=== PATIENT | male | born 1950 | race Caucasian/White ===

== ENCOUNTER 2023-10-03 14:26 | Outpatient (AMB) | payer OTHER, SELFPAY ==
--- NOTE | 2023-10-03 14:27 | MHC.OFFVIS ---
Vital Signs 10/03/23 14:28 Height 5 ft 10 in Weight 224 lb BMI 32.1 BP 112/72 Blood Pressure Location Rt brachial Position Sitting Pulse Source Pulse Oximeter Pulse Oximetry (%) 97 Oxygen Delivery Method Room Air Intake Visit Reasons: 05/07LVM+Let TRL-Gzhnypmif-GGTN Intake Note: patient presents for dizziness. Allergies No Known Allergies Allergy (Verified 10/03/23 14:31) Medication List - Last Reconciled 10/03/23 by REBEKAH Farr amlodipine 10 mg PO DAILY ferrous sulfate 325 mg PO DAILY lisinopril 20 mg PO DAILY meclizine 12.5 mg PO TID metformin 1,000 mg PO BID omeprazole 40 mg PO BID simvastatin 40 mg PO BEDTIME HPI Comments Details: 73-yr-old male presents for neurological evaluation of: dizziness in setting of PMH of DM, HTN, HLD, GERD. Pt reports he had intermittent episodes of room spinning dizziness, which started > 1 yr ago. He describes brief episodes of room spinning dizziness triggered by leaning his back or rolling over in bed. During this time, he had 2 more intense episodes. Once, it occurred after he stood up from his couch. Another time, he was golfing, and he leaned over to put the golf ball on the coco, and had room spinning dizziness. He feels this was triggered by smoking flavored small cigars. He states he smoking any cigars about 3 months ago, and has not had dizziness since. Endorses left ear surgery to tx left ear infection ~ 50 yrs ago, [place], left more so than right, hearing loss, nasal polyp removal 20 yrs ago, occasional very brief orthostatic lightheadedness- he notes he does not drink a lot of fluids- does take 1 glasses of wine and espresso w/ judy/water (w/ lunch and dinner). His dtr adds that pt has had 2 falls- one fall many 55yrs ago while working in [facility]- He had another fall ~15 yrs ago, where he fell and hit the back of his head, where he had headaches and dizziness, but pt denies that he has ever had headaches. His notes that he did have headaches and dizziness for a few days after that fall. Denies tinnitus, ear pain, recent ear infections, headaches, head pressure, neck pain, jaw pain, bruxism, sleep difficulties. He has not had any recent head imaging. He has not done vestibular therapy. PFSH Surgical History (Updated 10/03/23 @ 14:40 by SAMY Gaitan) History of ear surgery Family History (Updated 10/03/23 @ 14:40 by SAMY Gaitan) Father Cancer Social History (Updated 10/03/23 @ 14:41 by SAMY Gaitan) Alcohol intake: current Patient Tobacco Use Status: Former Tobacco user Tobacco use type: Cigar Review of Systems Const All systems reviewed & are unremarkable except as noted in HPI and below Physical Exam Vital Signs: Last Vital Signs BP 112/72 10/03/23 14:28 Pulse Ox 97 10/03/23 14:28 Oxygen Delivery Method Room Air 10/03/23 14:28 BMI result Body Mass Index 32.1 Const General: cooperative and no acute distress Orientation/consciousness: patient oriented x3 HEENT Other: Signs of loer front teeth wearing Head: Yes normocephalic Resp Effort & Inspection: normal respiratory effort and able to speak in complete sentences Neuro Other: Limited cervical ROM in all fiends w/o pain. General: patient oriented x3, CN's II-XI intact bilaterally (w/ exception of bilateral [place]) and deep tendon reflexes 2+ bilaterally Cranial nerves: Yes Bilaterally intact EOM present and Yes Nystagmus not present Gait exam (Neuro): Normal gait present Motor exam (neuro): 5/5 motor strength present throughout Psych Appearance: grossly normal Mental Status: mental status grossly normal Speech and movement: Normal speech and movement present Affect: normal affect Attitude: cooperative Thought process: Normal thought process present Thought content: Normal thought content present Insight: Good insight present (Psych) Assessment & Plan Assessment & Plan (1) Dizziness: Code(s): R42 - Dizziness and giddiness Category: Medical (2) Hard of hearing: Code(s): H91.90 - Unspecified hearing loss, unspecified ear Category: Medical Plan Pt advsied to undergo: Brain MRI w/wo to assess for intracranial etiologies of dizziness in setting of CV risk factors and h/o left ear surgery/infection. Head/neck CTA to rule out extra/intra cranial artery stenosis. Increase fluids. Concur w/ cigar smoking cessation. Future considerations- vestibular tx. Patient seen in collaboration with Dr. Athreya. Orders: Orders CT angio head neck 10/03/23 E11.9 - Type 2 diabetes mellitus without complications, E78.5 - Hyperlipidemia, unspecified, I10 - Essential (primary) hypertension, R42 - Dizziness and giddiness MR head/brain wo/w con 10/03/23 E11.9 - Type 2 diabetes mellitus without complications, E78.5 - Hyperlipidemia, unspecified, I10 - Essential (primary) hypertension, R42 - Dizziness and giddiness Coding Level of Care Code New Pt Level 4 (49758) Diagnoses Dizziness R42 Hard of hearing H91.90
[2023-10-03 14:28] VITALS: BP 112/72; O2SAT 97; BMI 32.1
== END 2023-10-03 16:17 | disposition home or self-care (01) ==
PROVIDERS: PCP Student in an Organized Health Care Education/Training Program; Visit Provider Nurse Practitioner Family
DX: R42 Dizziness and giddiness (principal); H91.90 Unspecified hearing loss, unspecified ear
CPT/HCPCS: 99204

== ENCOUNTER → 2023-10-03 14:26 | Outpatient (BNVA) | payer OTHER, SELFPAY | PROVIDERS: PCP Student in an Organized Health Care Education/Training Program; Visit Provider Nurse Practitioner Family ==

== ENCOUNTER → 2023-12-16 13:18 | Outpatient (BNV) | payer OTHER, SELFPAY | PROVIDERS: PCP Student in an Organized Health Care Education/Training Program; Visit Provider Radiology Diagnostic Radiology | DX: R42 Dizziness and giddiness (principal) | CPT/HCPCS: 70553 ==

== ENCOUNTER 2023-12-16 13:34 | Outpatient (REF) | payer OTHER, SELFPAY ==
--- NOTE | ~2023-12-16 | MR_ITS ---
EXAMINATION: MR BRAIN AND MRI ORBITS WITHOUT AND WITH CONTRAST CLINICAL INFORMATION: Dizziness. Prior left ear surgery. COMPARISON: None available. TECHNIQUE: Multiplanar, multisequence MRI of the brain and MRI orbits was obtained before and after the intravenous administration of 10 mL gadolinium without reported immediate complications. FINDINGS: No restricted diffusion. Macrocystic encephalomalacia with associated hyperintense T2 FLAIR and susceptibility centered within the right frontal lobe, rectus and orbital frontal gyri, similar findings to a lesser extent involving the left frontal rectus and orbital frontal gyri. Bilateral multifocal patchy deep periventricular white matter hyperintense T2 FLAIR signal involving centrum semiovale, reyes radiata, mid cathy and to a lesser extent brachii pontis bilaterally. No acute intracranial hemorrhage, mass effect, midline shift, hydrocephalus or herniation. Hutchison-white matter differentiation is normal. Posterior cranial fossa contents demonstrated small old lacunar infarcts in the cerebellum. Old lacunar infarcts in the basal ganglia with the cribriform shape pattern and extending into the reyes radiata white matter. Prominence of the extra-axial CSF spaces, cerebral sulci and ventricles. Flow-void signal within the main cerebral vessels is normal. Left Meckel caves CSF prominence. Sellar/suprasellar region is normal. Craniocervical junction is intact. There is a 12 mm intrinsic hyperintense T1, nonrestricted and likely nonenhancing ovoid shaped signal abnormality within the left ethmoid air cells/left nasal cavity, similar lesions in the posterior right ethmoid air cells/nasal cavity and right sphenoid sinus. No abnormal enhancement within the intra-axial and extra-axial compartment of the cranium. Polypoid mucosal enhancing thickening of the paranasal sinuses. No enhancing lesion within the intraconal or the extraconal compartment of the orbits. There is an 8 mm sessile isointense T1 intermediate T2 FLAIR heterogeneous enhancing lesion within the skin of the left lateral nose bridge. No extension within the dermis or the medial preseptal orbit. The eyes are intact. The lacrimal glands are normal. MR/MR head/brain wo/w con IMPRESSION: 8 mm lesion, left lateral nose bridge skin. Polypoid pattern paranasal sinus disease without seated complex/proteinaceous retention cysts. Encephalomalacia, associated old blood products and gliosis, bifrontal lobes. Small vessel occlusive disease. Electronically signed by: Antonino Lewis MD 12/17/2023 08:26 AM THONG RP
[2023-12-16] MEDS: gadobutroL 10 ML VIAL IVPUSH (14:39)
== END 2023-12-16 13:35 | disposition home or self-care (01) ==
LOC: HO.MRI 13:34
PROVIDERS: PCP Student in an Organized Health Care Education/Training Program; Visit Provider Nurse Practitioner Family
DX: R42 Dizziness and giddiness (principal); E11.9 Type 2 diabetes mellitus without complications; I10 Essential (primary) hypertension
CPT/HCPCS: 70553; A9585

== ENCOUNTER 2023-12-24 11:06 | Outpatient (REF) | payer OTHER, SELFPAY ==
[2023-12-24 11:52] LABS: Anion Gap 14 (12-20); Blood Urea Nitrogen 16 mg/dL (9-16); Calcium 9.8 mg/dL (8.4-10.2); Carbon Dioxide 23 mmol/L (22-29); Chloride 107 mmol/L (96-108); Estimated Glomerular Filt Rate > 60; Glucose Random 154 mg/dL (60-115); Potassium 4.2 mmol/L (3.3-5.1); Sodium 140 mmol/L (135-145)
== END 2023-12-24 11:07 | disposition home or self-care (01) ==
LOC: HO.LAB 11:06
PROVIDERS: PCP Student in an Organized Health Care Education/Training Program; Visit Provider Nurse Practitioner Family
DX: E11.9 Type 2 diabetes mellitus without complications (principal)
CPT/HCPCS: 36415; 80048

== ENCOUNTER 2023-12-31 07:38 | Outpatient (REF) | payer OTHER, SELFPAY ==
[2023-12-31] MEDS: iohexoL 350 MG/ML 100 ML INFUS..BTL 70 ML IV (09:04)
== END 2023-12-31 07:39 | disposition home or self-care (01) ==
LOC: HO.CT 07:38
PROVIDERS: PCP Student in an Organized Health Care Education/Training Program; Visit Provider Nurse Practitioner Family
DX: R42 Dizziness and giddiness (principal); E11.9 Type 2 diabetes mellitus without complications; I10 Essential (primary) hypertension; E78.5 Hyperlipidemia, unspecified
CPT/HCPCS: 70496; 70498; Q9967

== ENCOUNTER 2024-04-11 15:32 | Outpatient (AMB) | payer OTHER, SELFPAY ==
[2024-04-11 15:42] VITALS: BP 150/80; PULSE 93; O2SAT 98; BMI 33.3
--- NOTE | 2024-04-11 15:42 | MHC.OFFVIS ---
Vital Signs 04/11/24 15:42 Height 5 ft 10 in Weight 232 lb BMI 33.3 BP 150/80 H Blood Pressure Location Lt brachial Position Sitting Pulse 93 Pulse Source Pulse Oximeter Pulse Oximetry (%) 98 Oxygen Delivery Method Room Air Intake Visit Reasons: Follow up Intake Note: Patient presents follow up dizziness. MRI/CTA in chart Engineer Chief Required: No Allergies No Known Allergies Allergy (Verified 04/11/24 15:47) Medication List - Last Reconciled 04/11/24 by REBEKAH Farr ferrous sulfate 325 mg PO DAILY lisinopril 20 mg PO DAILY metformin 1,000 mg PO BID omeprazole 40 mg PO BID simvastatin 40 mg PO BEDTIME HPI Comments Details: The patient is a 73-year-old male presenting with dizziness. Patient is accompanied by his dtr. The dizziness has resolved with smoking cessation. MRI reveals right frontal encephalomalacia, old small lacunar strokes and cerebral white matter changes. Follow-up CTA head/neck revealed right vertebral artery stenosis and left M2 blockage. The patient reports a past fall with a head injury. Pt denies h/o known stroke or TIA s/s. History of chronic left nasal bridge skin growth- does not impair vision. Previous hypertension treatment with amlodipine stopped due to edema, with no current alternative. He does not currently take aspirin. He is compliant with his statin, and his last look at levels were within normal limits. He is compliant with his diabetic medication regimen. Patient states his blood pressure is normally normal when he checks it at home, and only elevated when he's at the doctor's office. 12/16/2023, MR/MR head/brain wo/w con IMPRESSION: 8 mm lesion, left lateral nose bridge skin. Polypoid pattern paranasal sinus disease without seated complex/proteinaceous retention cysts. Encephalomalacia, associated old blood products and gliosis, bifrontal lobes. Small vessel occlusive disease. 12/31/2023, CT/CT angio head neck IMPRESSION: 1. CT head demonstrates no acute intracranial hemorrhage or edematous infarct. Chronic microangiopathy and global cerebral atrophy. 2. CTA head demonstrates near-complete focal stenosis of the left M2 mid to distal branch. No large vessel occlusion, saccular aneurysm, or dissection. 3. CTA neck demonstrates near complete focal stenosis of the right vertebral artery origin. No additional hemodynamically significant stenosis, dissection, or aneurysm. PFSH Surgical History History of ear surgery Family History Father Cancer Social History Alcohol intake: current Patient Tobacco Use Status: Former Tobacco user Tobacco use type: Cigar Physical Exam Vital Signs: Last Vital Signs Pulse 93 04/11/24 15:42 BP 150/80 H 04/11/24 15:42 Pulse Ox 98 04/11/24 15:42 Oxygen Delivery Method Room Air 04/11/24 15:42 BMI result Body Mass Index 33.3 Const General: cooperative and no acute distress Orientation/consciousness: patient oriented x3 HEENT Head: Yes normocephalic Resp Effort & Inspection: normal respiratory effort and able to speak in complete sentences Neuro General: patient oriented x3, CN's II-XI intact bilaterally (w/ exception of bilateral [place]) and deep tendon reflexes 2+ bilaterally Cranial nerves: Yes Bilaterally intact EOM present and Yes Nystagmus not present Gait exam (Neuro): Normal gait present Motor exam (neuro): 5/5 motor strength present throughout Psych Appearance: grossly normal Mental Status: mental status grossly normal Speech and movement: Normal speech and movement present Affect: normal affect Attitude: cooperative Assessment & Plan Assessment & Plan (1) Occlusion of right vertebral artery: Code(s): I65.01 - Occlusion and stenosis of right vertebral artery Category: Medical (2) Intracranial vascular stenosis: Code(s): I67.9 - Cerebrovascular disease, unspecified Category: Medical Plan Discussion Notes During the visit, I reviewed the patient's MRI/CTA findings and discussed the implications of the white matter changes and small ischemic strokes, highlighting the absence of acute symptoms. The right vertebral artery stenosis and left M2 blockage were addressed, with a recommendation for neurovascular consultation to evaluate surgical options, keeping in mind the risks and challenges involved in vascular interventions. We discussed initiating daily aspirin therapy for stroke prevention, with explanation of potential bruising and bleeding risks associated with aspirin use. Lifestyle modifications, primarily ongoing smoking cessation, were highlighted as beneficial in dizziness resolution and risk reduction. I emphasized the importance of consistent blood pressure monitoring and maintaining control of cholesterol levels. Patient consented to further evaluation by a neurovascular specialist at [place]. Patient was informed and verbally consented to the use of an ambient scribe for clinic note documentation during this visit. Patient Instructions - Check labs as ordered. - Continue not smoking to help manage dizziness and reduce stroke risk. - Monitor your blood pressure at home regularly, ideally first thing in the morning and after lunch. - Begin taking a daily low-dose (baby) aspirin at bedtime to help reduce stroke risk. - Continue current medications as advised, including metformin and statin. - Expect a call to schedule an appointment with a neurovascular surgeon at [place] for further review of your cerebral blood vessel narrowing. - Follow up in 6 months or sooner as necessary, especially if experiencing new symptoms or if home blood pressure monitoring reveals raised levels. Orders: Orders Complete Blood Count Auto Diff 04/11/24 I67.9 - Cerebrovascular disease, unspecified, I65.01 - Occlusion and stenosis of right vertebral artery, E78.5 - Hyperlipidemia, unspecified, I10 - Essential (primary) hypertension, D64.9 - Anemia, unspecified Comprehensive Met. Panel 04/11/24 I67.9 - Cerebrovascular disease, unspecified, I65.01 - Occlusion and stenosis of right vertebral artery, E78.5 - Hyperlipidemia, unspecified, I10 - Essential (primary) hypertension, D64.9 - Anemia, unspecified IRON PROFILE 04/11/24 I67.9 - Cerebrovascular disease, unspecified, I65.01 - Occlusion and stenosis of right vertebral artery, E78.5 - Hyperlipidemia, unspecified, I10 - Essential (primary) hypertension, D64.9 - Anemia, unspecified Vitamin B12 and Folate 04/11/24 I67.9 - Cerebrovascular disease, unspecified, I65.01 - Occlusion and stenosis of right vertebral artery, E78.5 - Hyperlipidemia, unspecified, I10 - Essential (primary) hypertension, D64.9 - Anemia, unspecified CRP High Sensitivity 04/11/24 I67.9 - Cerebrovascular disease, unspecified, I65.01 - Occlusion and stenosis of right vertebral artery, E78.5 - Hyperlipidemia, unspecified, I10 - Essential (primary) hypertension, D64.9 - Anemia, unspecified Ferritin 04/11/24 I67.9 - Cerebrovascular disease, unspecified, I65.01 - Occlusion and stenosis of right vertebral artery, E78.5 - Hyperlipidemia, unspecified, I10 - Essential (primary) hypertension, D64.9 - Anemia, unspecified Homocysteine 04/11/24 I67.9 - Cerebrovascular disease, unspecified, I65.01 - Occlusion and stenosis of right vertebral artery, E78.5 - Hyperlipidemia, unspecified, I10 - Essential (primary) hypertension, D64.9 - Anemia, unspecified Erythrocyte Sedimentation Rate 04/11/24 I67.9 - Cerebrovascular disease, unspecified, I65.01 - Occlusion and stenosis of right vertebral artery, E78.5 - Hyperlipidemia, unspecified, I10 - Essential (primary) hypertension, D64.9 - Anemia, unspecified TSH reflex Free T4 04/11/24 I67.9 - Cerebrovascular disease, unspecified, I65.01 - Occlusion and stenosis of right vertebral artery, E78.5 - Hyperlipidemia, unspecified, I10 - Essential (primary) hypertension, D64.9 - Anemia, unspecified Lipid Panel with Reflex 04/11/24 I67.9 - Cerebrovascular disease, unspecified, I65.01 - Occlusion and stenosis of right vertebral artery, E78.5 - Hyperlipidemia, unspecified, I10 - Essential (primary) hypertension, D64.9 - Anemia, unspecified Referrals Vascular Neurology Referral I65.01 - Occlusion and stenosis of right vertebral artery, I67.9 - Cerebrovascular disease, unspecified Medications: New aspirin 81 mg PO BEDTIME 30 tabs 6RF 30 days Coding Level of Care Code Est Pt Level 4 (01508) Diagnoses Occlusion of right vertebral artery I65.01 Intracranial vascular stenosis I67.9
--- OUTSIDE RECORDS SUMMARY | 2024-04-11 17:37 | XMS_ITS | Clinical Summary ---
Author Organization [address] [facility] Address [address] [place] [address] Phone Care Team Providers Care President + Publisher Name Role Phone Bart Gray MD Primary Care Provider [phone] Allergies No known active allergies Medications empagliflozin (JARDIANCE) 25 mg tablet Take 1 tablet (25 mg total) by mouth 1 (one) time each day in the morning. 28 tablet 3 4 Active cyanocobalamin (VITAMIN B-12) 1,000 mcg tablet TAKE 1 TABLET BY MOUTH EVERY DAY 90 tablet 3 5 Active lisinopriL (PRINIVIL,ZESTR IL) 20 mg tablet TAKE 1 TABLET BY MOUTH EVERY DAY 90 tablet 1 5 Active ferrous sulfate 325 mg (65 mg elemental iron) tablet TAKE 1 TABLET BY MOUTH EVERY DAY 90 tablet 3 5 Active lisinopriL (PRINIVIL,ZESTR IL) 20 mg tablet Take 1 tablet (20 mg total) by mouth 1 (one) time each day. 30 tablet 2 4 03/31/19 25 Discontinued Active Problems Problem Noted Date Diagnosed Date Primary hypertension 01/28/2024 Type 2 diabetes mellitus wit hout complication, without long-term current use of insulin 01/28/2024 Mixed hyperlipidemia 01/28/2024 Vitamin D deficiency 01/28/2024 Gastroesophageal reflux disease 01/28/2024 Elevated liver enzymes 01/28/2024 Iron deficiency anemia 01/28/2024 Immunizations Name Administration Dates Next Due Pneumococcal Conjugate 06/18/2023 Social History Tobacco Use Types Packs/Day Years Used Date Smoking Tobacco: Never Assessed Sex and Gender Information Value Date Recorded Sex Assigned at Not on file Legal Sex Male 7:53 PM EST Gender Identity Not on file Sexual Orientation Not on file Plan of Treatment Upcoming Encounters Date Type Department Care Team ([facility] Contact Info) Description 06/23/2024 2:30 PM EDT Office Visit Internal Medicine - [address] [place] [phone] Bart Gray MD [address] [facility] [address] [place] [address] 12/08/2024 9:00 AM EDT Office Visit Gastroenterology - [address] [place] [phone] Lorna Carver NP [address] [address] Health Maintenance Due Date Last Done Comments Diabetes: Annual Foot Exam 1960 Diabetes: Annual Retina Eye Exam 1960 DTaP,Tdap,and Td Vaccines (1 - Tdap) 1969 Pneumococcal Vaccine: 50+ Ye ars (1 of 2 - PCV) 1969 Zoster Vaccines (1 of 2) 2000 RSV Immunization Patients 60 + Years Old (1 - Risk 60-74 years 1-dose series) 2010 Depression Screening 01/14/2022 Falls Risk Assessment 01/14/2022 Social Influencers of Health Screening 01/14/2022 COVID-19 Vaccine (1 - 2023-2 5 season) 2023 Influenza Vaccine (#1) 2023 Diabetes: Blood Sugar Contro l Test (HGBA1C) 01/28/2024 04/02/2023 Diabetes: Annual Urine Albumin-Creatinine Ratio (uACR) 04/02/2024 04/02/2023 Diabetes: Annual GFR (Glomer ular Filtration Rate) 04/02/2024 04/02/2023 Hypertension/CHF/CAD Annual BMP Blood Test 04/02/2024 04/02/2023 Cholesterol Screening (Lipid Panel) 04/02/2028 04/02/2023 Colorectal Cancer Screening: Colonoscopy 05/20/2033 05/21/2023 Hepatitis C Screening Completed 04/04/2023 Abdominal Aortic Aneurysm (A AA) Screen Completed 07/16/2023 HIB Vaccines Aged Out No longer eligi ble based on patient's age to complete this topic HPV Vaccines Aged Out No longer eligi ble based on patient's age to complete this topic Hepatitis A Vaccines Aged Out No long er eligible based on patient's age to complete this topic Hepatitis B Vaccines Aged Out No long er eligible based on patient's age to complete this topic IPV Vaccines Aged Out No longer eligi ble based on patient's age to complete this topic MMR Vaccines Aged Out No longer eligi ble based on patient's age to complete this topic Meningococcal ACWY Vaccine Aged Out N o longer eligible based on patient's age to complete this topic Meningococcal B Vacine Aged Out No lo nger eligible based on patient's age to complete this topic RSV Immunization Patients Un avi 20 months Aged Out No longer eligible b ased on patient's age to complete this topic Varicella Vaccines Aged Out No longer eligible based on patient's age to complete this topic Procedures Procedure Name Priority Date/Time Associated Diagnosis Comments ABDOMINAL AORTIC ANEURYSM SCRREN Routine 07/16/2023 COLONOSCOPY Routine 05/21/2023 HEPATITIS C SCREENING Routine 04/04/2023 URINE ALBUMIN CREATININE RATIO Routine 04/02/2023 ANNUAL BMP BLOOD TEST Routine 04/02/2023 HEMOGLOBIN A1C Routine 04/02/2023 LIPID PANEL Routine 04/02/2023 from Last 3 Months or Most Recently Relevant to Health Maintenance Results * Abdominal Aortic Aneurysm Screen (07/16/2023) Abdominal Aortic Aneurysm (AAA) Screening abstracted Anatomical Region Laterality Modality Other us Historical Provider HEALTH MAINTENANCE Final Result * Colonoscopy (05/21/2023) Pathologist [facility] Colonoscopy no interpretation , abstracted Anatomical Region Laterality Modality Other Result [facility] Provider HEALTH MAINTENANCE Final Result * Hepatitis C Screening (04/04/2023) Pathologist [facility] Hepatitis C Screening abstracted Result [facility] Provider HEALTH MAINTENANCE Final Result * Urine Albumin Creatinine Ratio (04/02/2023) Pathologist [facility] Urine Albumin Creatinine Ratio abstracted Result [facility] Provider HEALTH MAINTENANCE Final Result * Annual BMP Blood Test (04/02/2023) Pathologist [facility] Annual BMP Blood Test abstracted Result [facility] Provider HEALTH MAINTENANCE Final Result * (ABNORMAL) Hemoglobin A1c (04/02/2023) [facility] Hemoglobin A1C 6.6(A) <=6.5 % Blood Venous blood specimen / Unknown Result [facility] Provider LAB BLOOD ORDERABLES Rizwana l Result * Lipid panel (04/02/2023) [facility] LDL/HDL Ratio 2 0 - 4 Triglycerides 112 0 - 150 mg/dL Cholesterol 115 0 - 200 mg/dL HDL 48 >=40 mg/dL LDL Cholesterol 45 0 - 100 mg/dL Blood Venous blood specimen / Unknown Result [facility] Provider LAB BLOOD ORDERABLES Rizwana l Result from Last 3 Months or Most Recently Relevant to Health Maintenance Care Teams President + Publisher Relationship Specialty Start Date End Date Bart Gray MD [address] [place] [address] PCP - General Internal Medicine 01/02/24
--- OUTSIDE RECORDS SUMMARY | 2024-04-11 17:37 | XMS_ITS ---
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 Name Role Phone JUAN SANCHEZ Primary Care Provider Allergies No Known Allergies Results Component Value Reference Range Notes CBC Reviewed date:01/03/2023 03:38:35 PM Interpretation: Performing Lab: Notes/Report: Original Ordering Provider: JUAN SANCHEZ MD GSOUND, a member of [address] [address] Space Scheduler - Cindy Saldaña MD WBC 4.3 4.8-10.8 x10-3/uL RBC 4.4 4.5-5.5 x10-6/uL HEMOGLOBIN 11.4 13.5-17.5 g/dL HEMATOCRIT 37.9 42-54 % MCV 87.1 79-98 fL MCH 26.2 27-32 pg MCHC 30.1 32-37 g/dL RDW 17.2 11-15 % PLT COUNT 235 130-400 x10-3/uL MEAN PLATELET VOLUME 10.1 7-11 fL NRBC % AUTO 0.0 <1 % NRBC # AUTO 0.00 <0.1 x10-3/uL MICROALB/CREAT RATIO, RANDOM Reviewed date:01/03/2023 03:38:36 PM Interpretation: Performing Lab: Notes/Report: Original Ordering Provider: JUAN SANCHEZ MD GSOUND, a member of [address] [address] Space Scheduler - Cindy Saldaña MD MICROALBUMIN, RANDOM 17.8 0.0-29.0 mg/L MICROALB/CRE RATIO RANDOM 21.7 0.0-30.0 mg/G CREATININE, RANDOM URINE 82 REASON FOR VISIT 3 Month Follow-Up:, Last Labs: 09/06/22, EKG Needed @ Next Annual Visit: Patient Followed By: Dr George Medications Medication SIG (Take, Route, Frequency, Duration) Notes Start Date End Date Status metFORMIN HCl 1000 MG TAKE 1 TABLET BY M OUTH TWICE A DAY WITH MEALS for 90 Active Lisinopril 20 MG TAKE 1 TABLET BY TESSIE TH EVERY DAY for 90 Active Simvastatin 40 MG TAKE 1 TABLET BY TESSIE TH EVERY DAY IN THE EVENING for 90 Active Omeprazole 20 MG TAKE 1 CAPSULE BY MO UTH EVERY DAY for 84 Active Meloxicam 15 MG 1 tablet Orally Once a day for 30 days Active Clotrimazole-Betamethaso ne 1-0.05 % 1 application to affected area Externally Twice a day prn Active Losartan Potassium 100 MG 1 tablet Orally Once a day for 90 day(s) 01/20/2016 Active amLODIPine Besylate 10 MG TAKE 1 TABLET BY MOUTH EVERY DAY for 90 Active OneTouch Verio - TEST TWICE DAILY FOR 30 DAYS for 90 Active Ferrous Sulfate 325 (65 Fe) MG 1 tablet Orally Once a day for 90 days Active metFORMIN HCl ER 500 MG 1 tablet with ev ening meal Orally twice a day Not-Taki ng Cialis 20 MG 1 tablet Orally ever y 24 hrs for 30 day(s) 06/22/2015 Not-Taking HYDROcodone-Acetaminophe n 5-325 MG 1 tablet as needed Orally every 6 hrs ER Not-Taking Vitamin D3 50 MCG (1999 UT) 1 capsule Orally Once a day Active One Touch Delica Lancets - lancets DX: DM TYPE 2 E11.9 TEST BID 03/07/2016 Active Lisinopril 5 MG TAKE 1 TABLET BY TESSIE TH EVERY DAY for 90 Not-Taking Jardiance 25 MG TAKE 1 TABLET BY TESSIE TH EVERY DAY FOR 90 DAYS for 90 Active Social History Tobacco Use: Social History Observation Description Date Details (start date - stop date) Former Smoker NA - NA Tobacco Use/Smoking Question Answer Notes Are you a former smoker Additional Findings: Tobacco Non-User Current no n-smoker Alcohol Screen (Audit-C) Question Answer Notes Did you have a drink contain ing alcohol in the past year? Yes How often did you have a dri nk containing alcohol in the past year? 4 or more times a week (4 points) How many drinks did you have on a typical day when you were drinking in the past year? 3 or 4 drinks (1 point) How often did you have 6 or more drinks on one occasion in the past year? Less than monthly (1 point) Points 6 Interpretation Positive Tobacco use other than smoking: Question Answer Notes Are you an other tobacco user? No Section Notes: Retired in July 2015 from [employer] after 22 years. Bought his mother cindy [employer] and renovated it and moved downstairs. Rented upstairs. projects this year and play golf. 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 His son in law Matt Sebastian is a business excellence leader played golf with him. He was cheating on his and separarted for 2 years . Very dissapointed Sister is Taya López and has brother Cedric with hydrocephalus. he Dec 2019 Taya López, my patient too Has son Taye 40 yr moved to [place] in 2012 He has 2 son Parker 16 yr(excellent volleyball player) and Joni 14 yr. Bought a house and working for a [employer] He visits every July to play golf with his father for 4 days! Daughter Geetha Landaverde 41 yr supervisor travel information center at [employer] in [facility] 16 yrs. Lives in . Matt has 3 kids from previous marriage and all lived with them. Grown up and left house. 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 ; Iron deficiency anemia, unspecified iron deficiency anemia type D50.9 ; Fatty liver disease, nonalcoholic K76.0 and Former smoker Z87.891 Assessments Encounter Date Diagnosis (ICD Code) Assessment Notes Treatment Notes Treatment Clinical Notes Section Notes 01/03/2023 Shortness of breath (ICD-10 - R06.02) 09/20/22 New onset Will get cardiac eval 01/03/2023 Diabetes mellitus with nephropathy (ICD-10 - E11.21) 01/03/2023 Iron deficiency anemia, unspecified iron deficiency anemia type (ICD-10 - D50.9) 09/14/20 Iron levels within normal limits 08/28/22 Drop in Hct Will check iron level and reticulocyte count today and follow up in 4 weeks 01/03/2023 Fatty liver disease, nonalcoholic (ICD-10 - K76.0) Findings on CT scan Has mildly elevated liver enzymes 05/16/21 liver enzymes mildly elevated again, were normal last appt. will discuss next appt. drinks wine and judy at hs 01/03/2023 Former smoker (ICD-10 - Z87.891) Smoked cigarettes since age 12 yr Now smokes cigars one a day, Plan Of Treatment Pending Test Test Name Order Date Hemoglobin A1c 01/03/2023 Lipid Panel 01/03/2023 Chem-Comprehensive 01/03/2023 Progress Notes * Shyam LÓPEZOB: (72 yo M)Acc No.[id number]:01/03/2023 Progress Notes Patient:?Yuri López Provider:?Juan Sanchez MD :1950???Age:72 Y???Sex:Male Ariel e:01/03/2023 Address:[address] [place] [address] Subjective: * Chief Complaints: * ???3 Month Follow-Up:Last La bs: 09/06/22EKG Needed @ Next Annual Visit: Patient Followed By: Dr George * HPI: ???New/Follow-up Patient Consult:? 01/03/23 Came with Taya. Right hip pain resolved after using salonpas for a month. Played golf all summer. Will see Dr Tiwari next month Saw extension service advisor Dr Spring 12/13/22 . Had stress test and had echo and told all was fine No heart disease to explain his SOB on exertion He was a heavy smoker and probably his COPD is causing his SOB. Has appointmentment with Dr Tiwari on Jan 15, 2023 . No other issues Eating less at night ?09/20/22 Follow up after 4 weeks to assess his right hi pain and weight loss Had labs drawn and Xray of hip. Came with his Taya. Xray hip showed calcific tendinitis at lesser trochanter Mild OA changes He used salonpas and it helped , Labs reviewed , All okay except low iron . He is taking iron supplements for past few years. noticed thathe gets tired after exertion and is sob after climbing cellar stairs . Also complains he doesnt eat like before States after his Covid infection his taste for certain food has changed . ?08/28/22 Looking well. Playing golf once a week at [employer]. Goodfriend Cameron Abrams is sick for a while. Vists him. ?Dr Tiwari told him not to come as his Pulm nodule is stable. Had labs done Notived he is having right buttock pain sharp for a ,pment when he gets up from sitting. No pain while walking and playing golf started a week ago, Meds reviewed and reconciled Compliant. Taya is having cardiac evaluation for repeat TAVR by Dr Jewell. Has a lung lesion detected and got a CT scan detected On antibiotics. Very nervous. ?04/11/[address] chest for follow up of pulm nodules on 01/30/22 at [facility] . Ordered by Dr Tiwari Report indicate stable less than 4 mm nodules and no further follow up needed. Had QUEVEDO!C and urine microalbumin done 04/10/22. A1C 6.5. Meds reviewed and reconciled , Compliant No new complaints. Went last Dec to [place] with Taya and stayed with son Taye who moved there 10 years ago Played golf with him. Going again in June with Taya. Grandson Parker 18 yrs is graduating and looking at [employer] scholarship. No plans to visit [place] yet unless son goes with him Daughter Geetha is fine ?12/12/21 Came to office. Went to [facility] for 5 weeks in August. [place] week because of cancelled flight. Planning to going to [place] with Taya for a month and will stay with only son Taye in [place] . Works with [employer]. Has been there for 12 years. Has been golfing every week at [employer]. Good summer. ?Meds reviewed . Compliant with medications. Will see eye doctorand follow up with Dr Tiwari.Gets CT scan and PFTs. Breathing is fine . On no inhalers . Former smoker Smokes cigars occasionally. Notices his left ankle swells up intermittently since coming back from [facility]. States he sometimes has bad smell with certain sausages and lambs and he cannot eat it Happened after Covid. Saw eye doctor a month ago. Farxiga costing $175 a month Went up from $45 Wants to switch Will give Jardiance 25 mg Also will give Tadalafil 25 for his ED Good RX at [facility] ?08/02/21 Came to the office Looking well. Going to [facility] with Taya on 08/09/20 for 6 weeks. Daughter and GD will join them there. Had labs done yesterday. Needs refill of amlodipine 10 mg #[address] A1C was 6.8 in May Will repeat when he comes back in September . ?Goes golfing every week . Goes with son . No new complaints. Had Covid Asymptomatic ?06/13/21 Medications reviewed and reconciled ?Repeated lab work last time he was here. has been checking blood sugars range from 140s-200. ?Does note to having glass of wine a day and a shot with coffee. will drink a little more at parties or gatherings. ?Denies any complaints today, leaving for [facility] 08/09 ?05/16/21 Medications reviewed and reconciled. ?Pt went to see Dr Tiwari in March after his ct scan of chest. everything is the same and will f/u next year. Still smokes, not everyday. smokes 2-3 cigars a weeks socially. ?Pt has diabetes. pt routine is the same everyday. 730am has coffee, meds, lunch 12pm, home afternoon, glass of wine and coffee, pills and beds. next day sugar was 200, 195 this morning. has been checking daily. before lunch 140s. ?Going to [facility] August 09 for 6 weeks 02/15/21 Called him on phone States his son Taye and his son came from [place] for a week and when he went back he tested positive. So oSl , his Taya and solomon did home test for Covid on 02/13/21. Got it from [facility] . All tested positive. None of them have fever, chills, loss of taste or smell. Just mild siffles Both had Covid vaccine and booster shots. ?I reviewed the labs done 2 months aggggo. Told him to stay confined at home for another 3 days per CDC guidline and to let me know ifhe develops fever, chills, shortness of breath .His will be contacted by Taya Harkins today too. ?11/15/20 Medications reviewed and reconciled. Doing well, here for follow up on labs. ?Seeing Dr Marion next year, early. ?Still drinking two glass of wine twice a day with lunch and dinner. States he will not stop completely ever,part iof his social life and he is 70 and wants to enjoy life. Agrees to drink 1 gladd twice a day instead of 2 ? taya lópez and sister dari lópez. Both doing well. ?09/14/20 Medications reviewed and reconciled. Son lives in [place], went to visit him in may and will go in December. Wants to go to [facility] but it is bad now and he does not want to go and just stay inside all the time, not worth it. Stopped drinking for the whole month when told labs were elevated. last few days has been drinking wine again. says it is social and cultural and everyone he knows drinks wine with meals.Does not think he is an alcoholic since he stopped immediately when labs elevated and did not want to drink but now that they are normal feels he can go back to usual wine with lunch and dinner and espresso with whiskey in the morning. Denies any complaints feeling well. doing well, says she is more concerned about her health and checks her sugar and bp very regularly ?[facility]. Told there was no problem with the left knee Pain went away. Has been golging again. Played yesterday. Went to [employer] for vacation for 12 days. Had niece Sherry got in June in [place]. Whole family attended. Went to Golf with son in [place] 16 ethan Has been going to [place] [facility] for 26 years. His son comes from [place] every year to participate, ?Feels hwe is fine Moving better Has lost some weight. Had some postural dizzinesswhen he stands up suddenly But has been fine for past 3 weeks. Taking Farxiga Given samples Will take Jardiance if that is cheaper . A1C went up Has elevated liver transaminases Drinks a glass of wine which he makes Also has coffee with a whiskey Will stop for 4 weeks and check lFT Hct is stable. ?11/19/19 Came to office Looking well . Saw Dr Strong for investigation of his iron def anemia Had capsule endoscopy and EGD and colonoscopy(5mm rectal polyp, IH and Tics) BM now regular and daily after the colonoscopy. Jardiance is too expensive Changed to Farxiga gave samoles . Told to check prices Golfs once a week at [facility] and also at [facility] . No new concerns Has right hip pain which has resolved. Will get labs drawn again today to check his HCT. 11/19/19 Came to office Looking well . Saw Dr Strong for investigation of his iron def anemia Had capsule endoscopy and EGD and colonoscopy(5mm rectal polyp, IH and Tics) BM now regular and daily after the colonoscopy. Jardiance is too expensive Changed to Farxiga gave samoles . Told to check prices Golfs once a week at [facility] and also at [facility] . No new concerns Has right hip pain which has resolved. Will get labs drawn again today to check his HCT. [facility] for knee pain. Told there was no problem with the left knee Pain went away. Has been golging again. Played yesterday. Went to [employer] for vacation for 12 days. Had niece Sherry got in June in [place]. Whole family attended. Went to Golf with son in [place] 16 ethan Has been going to [place] [facility], for 26 years. His son comes from [place] every year to participate, ?Feels hwe is fine Moving better Has lost some weight. Had some postural dizzinesswhen he stands up suddenly But has been fine for past 3 weeks. Taking Farxiga Given samples Will take Jardiance if that is cheaper . A1C went up Has elevated liver transaminases Drinks a glass of wine which he makes Also has coffee with a whiskey Will stop for 4 weeks and check lFT Hct is stable. ?11/19/19 Came to office Looking well . Saw Dr Strong for investigation of his iron def anemia Had capsule endoscopy and EGD and colonoscopy(5mm rectal polyp, IH and Tics) BM now regular and daily after the colonoscopy. Jardiance is too expensive Changed to Farxiga gave samoles . Told to check prices Golfs once a week at [facility] and also at [facility] . No new concerns Has right hip pain which has resolved. Will get labs drawn again today to check his HCT. 11/19/19 Came to office Looking well . Saw Dr Strong for investigation of his iron def anemia Had capsule endoscopy and EGD and colonoscopy(5mm rectal polyp, IH and Tics) BM now regular and daily after the colonoscopy. Jardiance is too expensive Changed to Farxiga gave samoles . Told to check prices Golfs once a week at [employer] and also at [facility] . No new concerns Has right hip pain which has resolved. Will get labs drawn again today to check his HCT. * ROS:?Respiratory:?Denies?Asthma.?Denies?Breathing pattern.?Denies?Breathing problems.?Denies?Chest pain.?Denies?Cough.?Denies?Hemoptysis.?Denies?Pain with inspiration.?Denies?Pneumonia,?denies.?Denies?Shortness of breath,?denies.?Denies?Shortness of breath at rest.?Denies?Shortness of breath with exertion.?Denies?Sputum production.?Denies?Tuberculosis,?denies.?Denies?Wheezing.?Cardiovascular:?Denies?Chest pain.?Denies?Chest pain at rest.?Denies?Chest pain with exertion.?Denies?Claudication.?Denies?Cyanosis.?Denies?Difficulty laying flat.?Denies?Dizziness.?Denies?Dyspnea on exertion.?Denies?Fluid accumulation in the legs.?Denies?Heart murmur.?Denies?Heart problems.?Denies?High blood pressure.?Denies?Irregular heartbeat.?Denies?Orthopnea.?Denies?Palpitations.?Denies?Rheumatic fever.?Denies Shortness of breath.?Denies?Weakness.?Denies?Weight gain.?Gastrointestinal:?Denies?Abdominal pain.?Denies?Blood in stool.?Denies?Change in bowel habits.?Denies?Colitis,?denies.?Denies?Constipation.?Denies?Decreased appetite.?Denies?Diarrhea.?Denies?Difficulty swallowing.?Denies?Exposure to hepatitis.?Denies?Heartburn.?Denies?Hematemesis.?Denies?Hepatitis.?Denies?Nausea .?Denies?Rectal bleeding.?Denies?Stomach problems.?Denies?Vomiting.?Denies?Weight loss.? * Medical History:? * Surgical History:?Left ear s urgery * Hospitalization/Major Diagno stic Procedure:? * Family History:?FamilyHx: Fa tia history of malignant neoplasm;.? Born in [facility], near [facility] and lived there for 24 years till he moved here . Has his parents house there. Father when he was 7 yrs Mother came to [facility] and in 2007. Has 2 siblings. 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 Has a son Rodney 44 yr Market Development Analyst. Lives in [facility] #Cedric López 59 yr Had mild mental retardation. Hydrocephaly. Lived with Taya (my patient) 2020 EDUCATION: 4th grade education in [place] [employer]. 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 In [facility] worked in [employer] for 15 years. 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 Then worked for [employer] for [place] for 21 years. Retired on August 12 2015. 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 Liked soccer [employer].\nStressors. Nothing. * Social History:?Tobacco Use:?Tobacco Use/Smoking?Are you a?former smoker ?Additional Findings: Tobacco Non-User?Current non-smoker ?Tobacco use other than smoking?Are you an other tobacco user??No ???Social_Migrated:?SocialHx: Former smoker. ???Drugs/Alcohol:?Alcohol Screen (Audit-C)?Did you have a drink containing alcohol in the past year??Yes ?How often did you have a drink containing alcohol in the past year??4 or more times a week (4 points) ?How many drinks did you have on a typical day when you were drinking in the past year??3 or 4 drinks (1 point) ?How often did you have 6 or more drinks on one occasion in the past year??Less than monthly (1 point) ?Points?6 ?Interpretation?Positive ?Do you drink alcohol?: Yes. ???Retired in July 2015 from [employer] after 22 years. Bought his mother cindy share of aprtment and renovated it and moved downstairs. Rented upstairs. projects this year and play golf. 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 His son in law Matt Sebastian is a business excellence leader played golf with him. He was cheating on his and separarted for 2 years . Very dissapointed Sister is Taya López and has brother Cedric with hydrocephalus. he Dec 2019 Taya López, my patient too Has son Taye 40 yr moved to [place] in 2012 He has 2 son Parker 16 yr(excellent volleyball player) and Joni 14 yr. Bought a house and working for a [employer] He visits every July to play golf with his father for 4 days! Daughter Geetha Landaverde 41 yr supervisor travel information center at [employer] in [facility] 16 yrs. Lives in . Matt has 3 kids from previous marriage and all lived with them. Grown up and left house. 48 yrs to Taya She worked at [employer] in [facility] Retired 70 yrs old. * Medications:?TakingVitamin D 3 50 MCG (1999 UT) Capsule 1 capsule Orally Once a dayOne Touch Delica Lancets - Miscellaneous lancets DX: DM TYPE 2 E11.9 TEST BIDClotrimazole-Betamethasone 1-0.05 % Cream 1 application to affected area Externally Twice a day prnLosartan Potassium 100 MG Tablet 1 tablet Orally Once a dayOneTouch Verio - Strip TEST TWICE DAILY FOR 30 DAYS Ferrous Sulfate 325 (65 Fe) MG Tablet 1 tablet Orally Once a dayamLODIPine Besylate 10 MG Tablet TAKE 1 TABLET BY MOUTH EVERY DAY metFORMIN HCl 1000 MG Tablet TAKE 1 TABLET BY MOUTH TWICE A DAY WITH MEALS Omeprazole 20 MG Capsule Delayed Release TAKE 1 CAPSULE BY MOUTH EVERY DAY Meloxicam 15 MG Tablet 1 tablet Orally Once a dayLisinopril 20 MG Tablet TAKE 1 TABLET BY MOUTH EVERY DAY Simvastatin 40 MG Tablet TAKE 1 TABLET BY MOUTH EVERY DAY IN THE EVENING Jardiance 25 MG Tablet TAKE 1 TABLET BY MOUTH EVERY DAY FOR 90 DAYS Taking Vitamin D3 50 MCG (2000 UT) Capsule 1 capsule Orally Once a dayTaking One Touch Delica Lancets - Miscellaneous lancets DX: DM TYPE 2 E11.9 TEST BIDTaking Clotrimazole-Betamethasone 1-0.05 % Cream 1 application to affected area Externally Twice a day prnTaking Losartan Potassium 100 MG Tablet 1 tablet Orally Once a dayTaking OneTouch Verio - Strip TEST TWICE DAILY FOR 30 DAYS Taking Ferrous Sulfate 325 (65 Fe) MG Tablet 1 tablet Orally Once a dayTaking amLODIPine Besylate 10 MG Tablet TAKE 1 TABLET BY MOUTH EVERY DAY Taking metFORMIN HCl 1000 MG Tablet TAKE 1 TABLET BY MOUTH TWICE A DAY WITH MEALS Taking Omeprazole 20 MG Capsule Delayed Release TAKE 1 CAPSULE BY MOUTH EVERY DAY Taking Meloxicam 15 MG Tablet 1 tablet Orally Once a dayTaking Lisinopril 20 MG Tablet TAKE 1 TABLET BY MOUTH EVERY DAY Taking Simvastatin 40 MG Tablet TAKE 1 TABLET BY MOUTH EVERY DAY IN THE EVENING Taking Jardiance 25 MG Tablet TAKE 1 TABLET BY MOUTH EVERY DAY FOR 90 DAYS Not-TakingLisinopril 5 MG Tablet TAKE 1 TABLET BY MOUTH EVERY DAY metFORMIN HCl ER 500 MG Tablet Extended Release 24 Hour 1 tablet with evening meal Orally twice a dayCialis 20 MG Tablet 1 tablet Orally every 24 hrsHYDROcodone-Acetaminophen 5- 325 MG Tablet 1 tablet as needed Orally every 6 hrs, Notes: ERMedication List reviewed and reconciled with the patientNot-Taking Lisinopril 5 MG Tablet TAKE 1 TABLET BY MOUTH EVERY DAY Not-Taking metFORMIN HCl ER 500 MG Tablet Extended Release 24 Hour 1 tablet with evening meal Orally twice a dayNot-Taking Cialis 20 MG Tablet 1 tablet Orally every 24 hrsNot-Taking HYDROcodone-Acetaminophen 5-325 MG Tablet 1 tablet as needed Orally every 6 hrs, Notes: ERMedication List reviewed and reconciled with the patient * Allergies:?N.K.D.A.no[Allerg ies Verified] Objective: * Vitals:?Temp: 98.8 F, HR: 88 /min, BP: 122/62 mm Hg, Wt: 219 lbs, BMI:31.42 Index, Ht: 70 in, Oxygen sat %: 97 %, Wt-k.34 kg. * Examination: ???General Examination: ?GENERAL APPEARANCE:?in no acute distress, well developed, well nourished , in no acute distress, well developed, well nourished.?HEAD:?normocephalic, atraumatic , normocephalic, atraumatic.?HEART:?no murmurs, regular rate and rhythm, S1, S2 normal , no murmurs, regular rate and rhythm, S1, S2 normal.?LUNGS:?clear to auscultation bilaterally , clear to auscultation bilaterally.?ABDOMEN:?normal, bowel sounds present, soft, nontender, nondistended , normal, bowel sounds present, soft, nontender, nondistended.?EXTREMITIES:?no clubbing, cyanosis, or edema , no clubbing, cyanosis, or edema.?NEUROLOGIC:?nonfocal, motor strength normal upper and lower extremities, sensory exam intact , nonfocal, motor strength normal upper and lower extremities, sensory exam intact.? Assessment: * Assessment: 1.?Shortness of breath - R06 .02, 09/20/22 New onset Will get cardiac eval?2.?Diabetes mellitus with nephropathy - E11.21 (Primary)?3.?Iron deficiency anemia, unspecified iron deficiency anemia type - D50.9, 09/14/20 Iron levels within normal limits 08/28/22 Drop in Hct Will check iron level and reticulocyte count today and follow up in 4 weeks?4.?Fatty liver disease, nonalcoholic - K76.0, Findings on CT scan Has mildly elevated liver enzymes05/16/21 liver enzymes mildly elevated again, were normal last appt. will discuss next appt. drinks wine and judy at hs?5.?Former smoker - Z87.891, Smoked cigarettes since age 12 yr Now smokes cigars one a day,? Plan: * Treatment: * Procedure Codes:? * Billing Information: * Visit Code:? 13320 Office Visit, Est Pt., Level 4. * Procedure Codes:? * Sign off status: Completed true * Provider:?Juan Sanchez MD Date:?2022 Generated for Hailee newell/Pipo/Gabriella on:?04/11/2024 05:18 PM EST History and Physical Notes * HPI (History of Present Illness) Category Sub-Category Detail Notes Category Not es New/Follow-up Patient Consult 01/03/23 Came with Taya. Right hip pain resolved after using salonpas for a month. Played golf all summer. Will see Dr Tiwari next month Saw extension service advisor Dr Spring 12/13/22 . Had stress test and had echo and told all was fine No heart disease to explain his SOB on exertion He was a heavy smoker and probably his COPD is causing his SOB. Has appointmentment with Dr Tiwari on Jan 15, 2023 . No other issues Eating less at night 09/20/22 Follow up after 4 weeks to assess his right hi pain and weight loss Had labs drawn and Xray of hip. Came with his Taya. Xray hip showed calcific tendinitis at lesser trochanter Mild OA changes He used salonpas and it helped , Labs reviewed , All okay except low iron . He is taking iron supplements for past few years. noticed thathe gets tired after exertion and is sob after climbing cellar stairs . Also complains he doesnt eat like before States after his Covid infection his taste for certain food has changed . 08/28/22 Looking well. Playing golf once a week at [employer]. Goodfriend Cameron Abrams is sick for a while. Vists him. Dr Tiwari told him not to come as his Pulm nodule is stable. Had labs done Notived he is having right buttock pain sharp for a ,pment when he gets up from sitting. No pain while walking and playing golf started a week ago, Meds reviewed and reconciled Compliant. Taya is having cardiac evaluation for repeat TAVR by Dr Jewell. Has a lung lesion detected and got a CT scan detected On antibiotics. Very nervous. 04/11/[address] chest for follow up of pulm nodules on 01/30/22 at [facility] . Ordered by Dr Tiwari Report indicate stable less than 4 mm nodules and no further follow up needed. Had QUEVEDO!C and urine microalbumin done 04/10/22. A1C 6.5. Meds reviewed and reconciled , Compliant No new complaints. Went last Dec to [place] with Taya and stayed with son Taye who moved there 10 years ago Played golf with him. Going again in June with Taya. Grandson Parker 18 yrs is graduating and looking at [employer]. No plans to visit [place] yet unless son goes with him Daughter Geetha is fine 12/12/21 Came to office. Went to [place] for 5 weeks in August. [place] week because of cancelled flight. Planning to going to [place] with Taya for a month and will stay with only son Taye in [place] . 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 Has been golfing every week at [place]. Good summer. Meds reviewed . Compliant with medications. Will see eye doctorand follow up with Dr Tiwari.Gets CT scan and PFTs. Breathing is fine . On no inhalers . Former smoker Smokes cigars occasionally. Notices his left ankle swells up intermittently since coming back from [facility]. States he sometimes has bad smell with certain sausages and lambs and he cannot eat it Happened after Covid. Saw eye doctor a month ago. Farxiga costing $175 a month Went up from $45 Wants to switch Will give Jardiance 25 mg Also will give Tadalafil 25 for his ED Good RX at [facility] 08/02/21 Came to the office Looking well. Going to [facility] with Taya on 08/09/20 for 6 weeks. Daughter and GD will join them there. Had labs done yesterday. Needs refill of amlodipine 10 mg #[address] [place] [address] A1C was 6.8 in May Will repeat when he comes back in September . Goes golfing every week . Goes with son . No new complaints. Had Covid Asymptomatic 06/13/21 Medications reviewed and reconciled Repeated lab work last time he was here. has been checking blood sugars range from 140s-200. Does note to having glass of wine a day and a shot with coffee. will drink a little more at parties or gatherings. Denies any complaints today, leaving for [facility] 08/0905/16/21 Medications reviewed and reconciled. Pt went to see Dr Tiwari in March after his ct scan of chest. everything is the same and will f/u next year. Still smokes, not everyday. smokes 2-3 cigars a weeks socially. Pt has diabetes. pt routine is the same everyday. 730am has coffee, meds, lunch 12pm, home afternoon, glass of wine and coffee, pills and beds. next day sugar was 200, 195 this morning. has been checking daily. before lunch 140s. Going to [facility] August 09 for 6 weeks 02/15/21 Called him on phone States his son Taye and his son came from [place] for a week and when he went back he tested positive. So Sol , his Taya and solomon did home test for Covid on 02/13/21. Got it from [facility] . All tested positive. None of them have fever, chills, loss of taste or smell. Just mild siffles Both had Covid vaccine and booster shots. I reviewed the labs done 2 months aggggo. Told him to stay confined at home for another 3 days per [facility] guidline and to let me know ifhe develops fever, chills, shortness of breath .His will be contacted by Taya Harkins today too. 11/15/20 Medications reviewed and reconciled. Doing well, here for follow up on labs. Seeing Dr Marion next year, early. Still drinking two glass of wine twice a day with lunch and dinner. States he will not stop completely ever,part iof his social life and he is 70 and wants to enjoy life. Agrees to drink 1 gladd twice a day instead of 2 taya lópez and sister dari lópez. Both doing well. 09/14/20 Medications reviewed and reconciled. Son lives in [place], went to visit him in may and will go in December. Wants to go to [facility] but it is bad now and he does not want to go and just stay inside all the time, not worth it. Stopped drinking for the whole month when told labs were elevated. last few days has been drinking wine again. says it is social and cultural and everyone he knows drinks wine with meals.Does not think he is an alcoholic since he stopped immediately when labs elevated and did not want to drink but now that they are normal feels he can go back to usual wine with lunch and dinner and espresso with whiskey in the morning. Denies any complaints feeling well. doing well, says she is more concerned about her health and checks her sugar and bp very regularly [facility]. Told there was no problem with the left knee Pain went away. Has been golging again. Played yesterday. Went to [employer] for vacation for 12 days. Had niece Sherry got in June in [place]. Whole family attended. Went to Golf with son in [place] [address] [place] Has been going to [place], for 26 years. His son comes from [place] every year to participate, Feels hwe is fine Moving better Has lost some weight. Had some postural dizzinesswhen he stands up suddenly But has been fine for past 3 weeks. Taking Farxiga Given samples Will take Jardiance if that is cheaper . A1C went up Has elevated liver transaminases Drinks a glass of wine which he makes Also has coffee with a whiskey Will stop for 4 weeks and check lFT Hct is stable. 11/19/19 Came to office Looking well . Saw Dr Strong for investigation of his iron def anemia Had capsule endoscopy and EGD and colonoscopy(5mm rectal polyp, IH and Tics) BM now regular and daily after the colonoscopy. Jardiance is too expensive Changed to Farxiga gave samoles . Told to check prices Golfs once a week at [facility] and also at [facility] . No new concerns Has right hip pain which has resolved. Will get labs drawn again today to check his HCT. 11/19/19 Came to office Looking well . Saw Dr Strong for investigation of his iron def anemia Had capsule endoscopy and EGD and colonoscopy(5mm rectal polyp, IH and Tics) BM now regular and daily after the colonoscopy. Jardiance is too expensive Changed to Farxiga gave samoles . Told to check prices Golfs once a week at [facility] and also at [facility] . No new concerns Has right hip pain which has resolved. Will get labs drawn again today to check his HCT. [facility]. Told there was no problem with the left knee Pain went away. Has been golging again. Played yesterday. Went to [employer] for vacation for 12 days. Had niece Sherry got in June in [place]. Whole family attended. Went to Golf with son in [place] 16 [place] Has been going to [place] near [facility], for 26 years. His son comes from [place] every year to participate, Feels hwe is fine Moving better Has lost some weight. Had some postural dizzinesswhen he stands up suddenly But has been fine for past 3 weeks. Taking Farxiga Given samples Will take Jardiance if that is cheaper . A1C went up Has elevated liver transaminases Drinks a glass of wine which he makes Also has coffee with a whiskey Will stop for 4 weeks and check lFT Hct is stable. 11/19/19 Came to office Looking well . Saw Dr Strong for investigation of his iron def anemia Had capsule endoscopy and EGD and colonoscopy(5mm rectal polyp, IH and Tics) BM now regular and daily after the colonoscopy. Jardiance is too expensive Changed to [employer] gave samoles . Told to check prices Golfs once a week at [facility] and also at [facility] . No new concerns Has right hip pain which has resolved. Will get labs drawn again today to check his HCT. 11/19/19 Came to office Looking well . Saw Dr Strong for investigation of his iron def anemia Had capsule endoscopy and EGD and colonoscopy(5mm rectal polyp, IH and Tics) BM now regular and daily after the colonoscopy. Jardiance is too expensive Changed to Farxiga gave samoles . Told to check prices Golfs once a week at [facility] and also at [facility] . No new concerns Has right hip pain which has resolved. Will get labs drawn again today to check his HCT. Examination Category Sub-Category Detail Notes Category Not es General Examination GENERAL APPEARANCE: in no ac ho-chunk distress, well developed, well nourished , in no acute distress, well developed, well nourished HEAD: normocephalic, atrau matic , normocephalic, atraumatic HEART: no murmurs, regular rate and rhythm, S1, S2 normal , no murmurs, regular rate and rhythm, S1, S2 normal LUNGS: clear to auscultatio n bilaterally , clear to auscultation bilaterally ABDOMEN: normal, bowel sounds present, soft, nontender, nondistended , normal, bowel sounds present, soft, nontender, nondistended NEUROLOGIC: nonfocal, motor stre ngth normal upper and lower extremities, sensory exam intact , nonfocal, motor strength normal upper and lower extremities, sensory exam intact EXTREMITIES: no clubbing, cyanosi s, or edema , no clubbing, cyanosis, or edema
== END 2024-04-11 16:30 | disposition home or self-care (01) ==
PROVIDERS: PCP Student in an Organized Health Care Education/Training Program; Visit Provider Nurse Practitioner Family
DX: I65.01 Occlusion and stenosis of right vertebral artery (principal); I67.9 Cerebrovascular disease, unspecified
CPT/HCPCS: 99214

== ENCOUNTER 2024-04-23 09:21 | Outpatient (REF) | payer OTHER, SELFPAY ==
--- OUTSIDE RECORDS SUMMARY | 2024-04-23 10:10 | XMS_ITS | Clinical Summary ---
Author Organization [facility] Address [address] [place] [address] Phone Care Team Providers Care Supervisor Drawing Name Role Phone Bart Gray MD Primary Care Provider [phone] Allergies No known active allergies Medications empagliflozin (JARDIANCE) 25 mg tablet Take 1 tablet (25 mg total) by mouth 1 (one) time each day in the morning. 28 tablet 3 4 Active cyanocobalamin (VITAMIN B-12) 1,000 mcg tablet TAKE 1 TABLET BY MOUTH EVERY DAY 90 tablet 3 5 Active lisinopriL (PRINIVIL,ZEST RIL) 20 mg tablet TAKE 1 TABLET BY MOUTH EVERY DAY 90 tablet 1 5 Active ferrous sulfate 325 mg (65 mg elemental iron) tablet TAKE 1 TABLET BY MOUTH EVERY DAY 90 tablet 3 5 Active simvastatin (ZOCOR) 40 mg tablet TAKE 1 TABLET BY MOUTH EVERYDAY AT BEDTIME 90 tablet 1 5 Active lisinopriL (PRINIVIL,ZEST RIL) 20 mg tablet Take 1 tablet (20 mg total) by mouth 1 (one) time each day. 30 tablet 2 4 025 Discontinued Active Problems Problem Noted Date Diagnosed [...] Upcoming Encounters Date Type Department Care Team ([facility] st Contact Info) Description 06/23/2024 2:30 PM EDT Office Visit Internal Medicine - [place] [facility] [address] [place] [address] Bart Gray MD 175 [facility] [address] [place] [address] 12/08/2024 9:00 AM EDT Office Visit Gastroenterology - [place] [address] [place] [id number] Lorna Carver NP 175 [facility] [address] [place] [address] Health Maintenance Due Date Last Done Comments [...] Screening abstracted Anatomical Region Laterality Modality Other Result [facility] Historical Provider HEALTH MAINTENANCE Final Result * Colonoscopy (05/21/2023) Pathologist [facility] Colonoscopy no interpretation , abstracted Anatomical Region Laterality Modality Other Result [facility] Provider HEALTH MAINTENANCE Final Result * Hepatitis C Screening (04/04/2023) Pathologist [facility] Hepatitis C Screening abstracted Result [facility] Provider HEALTH MAINTENANCE Final Result * Urine Albumin Creatinine Ratio (04/02/2023) Pathologist [facility] Urine Albumin Creatinine Ratio abstracted Result [facility] Provider HEALTH MAINTENANCE Final Result * Annual BMP Blood Test (04/02/2023) Pathologist [facility] Annual BMP Blood Test abstracted Result [facility] Provider HEALTH MAINTENANCE Final Result * (ABNORMAL) Hemoglobin A1c (04/02/2023) [facility] Hemoglobin A1C 6.6(A) <=6.5 % Blood Venous blood specimen / Unknown Result [facility] Provider LAB BLOOD ORDERABLES Rizwana l Result * Lipid panel (04/02/2023) [facility] LDL/HDL Ratio 2 0 - 4 Triglycerides 112 0 - 150 mg/dL Cholesterol 115 0 - 200 mg/dL HDL 48 >=40 mg/dL LDL Cholesterol 45 0 - 100 mg/dL Blood Venous blood specimen / Unknown Result [facility] Provider LAB BLOOD ORDERABLES Rizwana l Result from Last 3 Months or Most Recently Relevant to Health Maintenance Care Teams Supervisor Drawing Relationship Specialty Start Date End Date Bart Gray MD [address] [place] [address] PCP - General Internal Medicine 01/02/24
--- OUTSIDE RECORDS SUMMARY | 2024-04-23 10:10 | XMS_ITS ---
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 Name Role Phone JUAN SANCHEZ Primary Care Provider [phone] Allergies No Known Allergies Results Component Value Reference Range Notes CBC Reviewed date:01/03/2023 03:38:35 PM Interpretation: Performing Lab: Notes/Report: Original Ordering Provider: JUAN SANCHEZ MD [facility], a member of [address] [address] Tele[employer] Billing Analyst - Cindy Saldaña MD WBC 4.3 4.8-10.8 [...] Performing Lab: Notes/Report: Original Ordering Provider: JUAN SNACHEZ MD [facility], a member of [address] [address] Telecom Billing Analyst - Cindy Saldaña MD MICROALBUMIN, RANDOM 17.8 [...] Section Notes: Retired in July 2015 from [employer] after 22 years. Bought his mother cindy [employer]OMO of [employer] and renovated it and moved downstairs. Rented upstairs. projects this year and play golf. 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 His son in law Matt Sebastian is a municipal firefighter played golf with him. He was cheating on his and separarted for 2 years . Very dissapointed Sister is Taya López and has brother Cedric with hydrocephalus. he Dec 2019 Taya López, my patient too Has son Taye 40 yr moved to [place] in 2012 He has 2 son Parker 16 yr(excellent trumpet player) and Joni 14 yr. Bought a house and working for a [employer] He visits every July to play golf with his father for 4 days! Daughter Geetha Landaverde 41 yr oil field equipment mechanic supervisor at [employer] in [facility] on dtr [facility] 16 yrs. Lives in . Matt has 3 kids from previous marriage and all lived with them. Grown up and left house. 48 yrs to Taya She worked at [employer] in [facility] Retired 70 yrs old Vital Signs Temperature 98.8 degrees Fahrenheit 01/04/20 23 Blood pressure systolic 122 mm Hg 01/04/20 23 Blood pressure diastolic 62 mm Hg 023 Heart Rate 88 /min 01/03/2023 Height 70 in 01/03/2023 Weight 219 lbs 01/03/2023 BMI 31.42 kg/m2 01/03/2023 Oximetry 97 % 01/03/2023 Encounters Encounter Location Date Provider Diagnosis [address] [place] [address] 01/03/2023 JUAN SANCHEZ Shortness of breath R06.02 [...] Notes * Shyam LÓPEZOB: (72 yo M)Acc No.[id number]:01/03/2023 Progress Notes Patient:?Yuri López Provider:?Juan Sanchez MD :1950???Age:72 Y???Sex:Male Ariel e:01/03/2023 Address:[address] [place] [address] Subjective: * Chief Complaints: * ???3 Month Follow-Up:Last La bs: 09/06/22EKG Needed @ Next Annual Visit: Patient Followed By: Dr George * HPI: ???New/Follow-up Patient Consult:? 01/03/23 Came with Taya. Right hip pain resolved after using salonpas for a month. Played golf all summer. Will see Dr Tiwari next month Saw manager chemical Dr Spring 12/13/22 . Had stress test [...] well. Playing golf once a week at [employer]. Goodfriend Cameron Abrams is sick for a [...] No new complaints. Went last Dec to [place] with Taya and stayed with son Taye who moved there 10 years ago Played golf with him. Going again in June with Taya. Grandson Parker 18 yrs is graduating and looking at [email or web address] scholarship. No plans to visit [place] yet unless son goes with him Daughter Geetha is fine ?12/12/21 Came to office. Went to [facility] for 5 weeks in August. [place] week because of cancelled flight. Planning to going to [place] with Taya for a month and will stay with only son Taye in [place] . Works with [employer]. Has been there for 12 years. Has been golfing every week at [employer]. Good summer. ?Meds reviewed . Compliant with medications. Will see eye doctorand follow up with Dr Tiwari.Gets CT scan and PFTs. Breathing is fine . On no inhalers . Former smoker Smokes cigars occasionally. Notices his left ankle swells up intermittently since coming back from [facility]. States he sometimes has bad smell with certain sausages and lambs and he cannot eat it Happened after Covid. Saw eye doctor a month ago. Farxiga costing $175 a month Went up from $45 Wants to switch Will give Jardiance 25 mg Also will give Tadalafil 25 for his ED Good RX at [facility] ?08/02/21 Came to the office Looking well. Going to [facility] with Taya on 08/09/20 for 6 weeks. Daughter and GD will join them there. Had labs done yesterday. Needs refill of amlodipine 10 mg #[address] [facility] [address] A1C was 6.8 in May Will [...] gatherings. ?Denies any complaints today, leaving for [facility] 08/09 ?05/16/21 Medications reviewed and reconciled. ?Pt [...] checking daily. before lunch 140s. ?Going to [facility] August 09 for 6 weeks 02/15/21 Called him on phone States his son Taye and his son came from [place] for a week and when he went back he tested positive. So Sol , his Taya and solomon did home test for Covid on 02/13/21. Got it from [facility] . All tested positive. None of them [...] Medications reviewed and reconciled. Son lives in [place], went to visit him in may and will go in December. Wants to go to [facility] but it is bad now and he [...] and bp very regularly ?[facility] pain. Told there was no problem with the left knee Pain went away. Has been golging again. Played yesterday. Went to [employer] for vacation for 12 days. Had niece Sherry got in June in [place]. Whole family attended. Went to Golf with son in [place] 16 ethan Has been going to [place] near [facility] for 26 years. His son comes from [place] every year to participate, ?Feels hwe is [...] check prices Golfs once a week at [facility] and also at [facility] . No new concerns Has right [...] check prices Golfs once a week at [facility] and also at [facility] . No new concerns Has right hip pain which has resolved. Will get labs drawn again today to check his HCT. 08/09/20 [facility] for knee pain. Told there was no problem with the left knee Pain went away. Has been golging again. Played yesterday. Went to [employer] for vacation for 12 days. Had niece Sherry got in June in [place]. Whole family attended. Went to Golf with son in [place] 16 ethan Has been going to [place] near [facility], for 26 years. His son comes from [place] every year to participate, ?Feels hwe is [...] check prices Golfs once a week at [facility] and also at [facility] . No new concerns Has right [...] check prices Golfs once a week at [facility] and also at [employer] . No new concerns Has right hip [...] tia history of malignant neoplasm;.? Born in [facility], near [facility] and lived there for 24 years till he moved here . Has his parents house there. Father when he was 7 yrs Mother came to [facility] and in 2007. Has 2 siblings. 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 Has a son Rodney 44 yr Solid Waste Collection Worker. Lives in [facility] #Cedric López 59 yr Had mild mental retardation. Hydrocephaly. Lived with Taya (my patient) 2020 EDUCATION: 4th grade education in [place] [employer]. 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 In [facility] worked in [employer] for 15 years. Opened [employer] for 4 yrs. Then worked for [employer] for 21 years. Retired on August 12 2015. 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 Liked soccer [employer].\nStressors. [...] alcohol?: Yes. ???Retired in July 2015 from [employer] after 22 years. Bought his mother cindy share of aprtment and renovated it and moved downstairs. Rented upstairs. projects this year and play golf. 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 His son in law Matt Sebastian is a municipal firefighter played golf with him. He was cheating on his and separarted for 2 years . Very dissapointed Sister is Taya López and has brother Cedric with hydrocephalus. he Dec 2019 Taya López, my patient too Has son Taye 40 yr moved to [place] in 2012 He has 2 son Parker 16 yr(excellent trumpet player) and Joni 14 yr. Bought a house and working for a [employer] He visits every July to play golf with his father for 4 days! Daughter Geetha Landaverde 41 yr oil field equipment mechanic supervisor at [employer] in [facility] on dtr [facility] 16 yrs. Lives in . Matt has 3 kids from previous marriage and all lived with them. Grown up and left house. 48 yrs to Taya She worked at [employer] in [facility] Retired 70 yrs old. * Medications:?TakingVitamin D [...] Codes:? * Billing Information: * Visit Code:? 38408 Office Visit, Est Pt., Level 4. * Procedure Codes:? * Sign off status: Completed true * Provider:?Juan Sanchez MD Date:?2022 Generated for Hailee newell/Pipo/Gabriella on:?04/23/2024 10:09 AM EDT History and Physical Notes * HPI (History of Present Illness) Category Sub-Category Detail Notes Category Not es New/Follow-up Patient Consult 01/03/23 Came with Taya. Right hip pain resolved after using salonpas for a month. Played golf all summer. Will see Dr Tiwari next month Saw manager chemical Dr Spring 12/13/22 . Had stress test [...] well. Playing golf once a week at [employer]. Goodfriend Cameron Abrams is sick for a [...] up of pulm nodules on 01/30/22 at [facility] . Ordered by Dr Tiwari Report indicate stable less than 4 mm nodules and no further follow up needed. Had [facility] and urine microalbumin done 04/10/22. A1C 6.5. Meds reviewed and reconciled , Compliant No new complaints. Went last Dec to [place] with Taya and stayed with son Taye who moved there 10 years ago Played golf with him. Going again in June with Taya. Grandson Parker 18 yrs is graduating and looking at [employer]. No plans to visit [place] yet unless son goes with him Daughter Geetha is fine 12/12/21 Came to office. Went to [place] for 5 weeks in August. [place] week because of cancelled flight. Planning to going to [place] with Taya for a month and will stay with only son Taye in [place] . 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 Has been golfing every week at [employer]. Good summer. Meds reviewed . Compliant with medications. Will see eye doctorand follow up with Dr Tiwari.Gets CT scan and PFTs. Breathing is fine . On no inhalers . Former smoker Smokes cigars occasionally. Notices his left ankle swells up intermittently since coming back from [facility]. States he sometimes has bad smell with certain sausages and lambs and he cannot eat it Happened after Covid. Saw eye doctor a month ago. Farxiga costing $175 a month Went up from $45 Wants to switch Will give Jardiance 25 mg Also will give Tadalafil 25 for his ED Good RX at [facility] 08/02/21 Came to the office Looking well. Going to [facility] with Taya on 08/09/20 for 6 weeks. Daughter and GD will join them there. Had labs done yesterday. Needs refill of amlodipine 10 mg #[address] [facility] [address] A1C was 6.8 in May Will [...] gatherings. Denies any complaints today, leaving for [facility] 08/0905/16/21 Medications reviewed and reconciled. Pt went [...] checking daily. before lunch 140s. Going to [facility] August 09 for 6 weeks 02/15/21 Called him on phone States his son Taye and his son came from [place] for a week and when he went back he tested positive. So Sol , his Taya and solomon did home test for Covid on 02/13/21. Got it from [facility] . All tested positive. None of them have fever, chills, loss of taste or smell. Just mild siffles Both had Covid vaccine and booster shots. I reviewed the labs done 2 months aggggo. Told him to stay confined at home for another 3 days per [facility] guidline and to let me know ifhe [...] Medications reviewed and reconciled. Son lives in [place], went to visit him in may and will go in December. Wants to go to [facility] but it is bad now and he [...] and bp very regularly 08[facility]09/[facility]. Told there was no problem with the left knee Pain went away. Has been golging again. Played yesterday. Went to [employer] for vacation for 12 days. Had niece Sherry got in June in [place]. Whole family attended. Went to Golf with son in [place] 16 guys Has been going to [place] near [place], for 26 years. His son comes from [place] every year to participate, Feels hwe is [...] check prices Golfs once a week at [facility] and also at [facility] . No new concerns Has right [...] check prices Golfs once a week at [facility] and also at [facility] . No new concerns Has right hip pain which has resolved. Will get labs drawn again today to check his HCT. 08/09/20 [facility] for [facility] pain. Told there was no problem with the left knee Pain went away. Has been golging again. Played yesterday. Went to [employer] for vacation for 12 days. Had niece Sherry got in June in [place]. Whole family attended. Went to Golf with son in [place] 16 ethan Has been going to [place] near [facility], for 26 years. His son comes from [place] every year to participate, Feels hwe is [...] colonoscopy. Jardiance is too expensive Changed to [employer] gave samoles . Told to check prices Golfs once a week at [facility] and also at [facility] . No new concerns Has right [...] check prices Golfs once a week at [facility] and also at [facility] . No new concerns Has right hip pain which has resolved. Will get labs drawn again today to check his HCT. Examination Category Sub-Category Detail Notes Category Not es General Examination GENERAL APPEARANCE: in no ac deja distress, well developed, well nourished , in [...]
[2024-04-23 18:17] LABS: MANUAL DIFF FLAG NO
[2024-04-23 18:26] LABS: Basophils Absolute Auto 0.1 X10*3/uL (0.0-0.2); Basophils Percent Auto 1.2 % (0-2); Eosinophils Absolute Auto 0.2 X10*3/uL (0.0-0.4); Hematocrit 32.9 % (42.0-52.0); Hemoglobin 9.7 g/dl (14.0-18.0); Imm Gran Abs Auto 0.01 X10*3/uL (0.00-0.03); Imm Gran Pct Auto 0.2 % (0.0-0.4); Lymphocytes Absolute Auto 1.1 X10*3/uL (1.2-4.9); Lymphocytes Percent Auto 26.1 % (20-40); Mean Corpuscular HGB Conc 29.5 g/dl (31.0-36.0); Mean Corpuscular Hemoglobin 24.7 pg (27.0-33.0); Mean Corpuscular Volume 83.9 fL (80.0-98.0); Mean Platelet Volume 10.7 fL (9.4-12.4); Monocytes Absolute Auto 0.5 X10*3/uL (0.1-1.2); Monocytes Percent Auto 11.6 % (2-11); Neutrophils Absolute Auto 2.4 x10*3/uL (2.0-8.3); Neutrophils Percent Auto 56.9 % (45-73); Platelet Count 287 X10*3/uL (160-400); Red Blood Count 3.92 X10*6/uL (4.60-5.80); Red Cell Distribution Width 17.2 % (11.0-16.0); White Blood Count 4.2 X10*3/uL (4.8-10.8)
[2024-04-23 18:54] LABS: Alanine Aminotransferase 60 U/L (0-40); Albumin Level 4.4 g/dL (3.5-5.0); Alkaline Phosphatase 52 U/L (39-117); Anion Gap 15 (12-20); Aspartate Amino Transferase 42 U/L (5-37); Bilirubin Total 0.3 mg/dL (0.0-1.0); Blood Urea Nitrogen 18 mg/dL (9-16); Carbon Dioxide 24 mmol/L (22-29); Chloride 106 mmol/L (96-108); Cholesterol 121 mg/dL (<200); Estimated Glomerular Filt Rate 51; Glucose Random 270 mg/dL (60-115); HDL Cholesterol 36 mg/dL (>40); Iron 15 mcg/dL (45-160); LDL Cholesterol Calculated 67 mg/dL (<100); Percent Iron Saturation 4 % (15-50); Sodium 140 mmol/L (135-145); Total Iron Binding Capacity 347 mcg/dL (228-428); Total Protein 7.3 g/dL (6.5-8.0); Triglycerides 90 mg/dL (<150); Unsaturated Iron Binding 332 ug/dL
[2024-04-23 19:00] LABS: Ferritin 11 ng/mL (20-250); TSH reflex Free T4 2.28 uIU/mL (0.32-4.0)
[2024-04-23 19:08] LABS: Erythrocyte Sedimentation Rate 9 MM/HR (0-15)
[2024-04-23 19:14] LABS: Folate 6.3 ng/mL (> or = 4.0); Vitamin B12 1675 pg/mL (200-900)
[2024-04-23 20:11] LABS: Reflex LDLD? No
[2024-04-24 17:23] LABS: CRP High Sensitivity 3.6 mg/L
== END 2024-04-23 09:22 | disposition home or self-care (01) ==
LOC: HO.HKASLDS 09:21
PROVIDERS: Visit Provider Nurse Practitioner Family
DX: I67.9 Cerebrovascular disease, unspecified (principal); I65.01 Occlusion and stenosis of right vertebral artery; E78.5 Hyperlipidemia, unspecified; I10 Essential (primary) hypertension; D64.9 Anemia, unspecified
CPT/HCPCS: 36415; 80053; 80061; 82607; 82728; 82746; 83540; 84443; 85025; 85652; 86141

== ENCOUNTER 2024-04-28 11:24 | Outpatient (REF) | payer OTHER, SELFPAY | END 2024-04-28 11:25 | disposition home or self-care (01) | LOC: HO.LAB 11:24 | PROVIDERS: PCP Student in an Organized Health Care Education/Training Program; Visit Provider Nurse Practitioner Family | DX: I67.9 Cerebrovascular disease, unspecified (principal); I65.01 Occlusion and stenosis of right vertebral artery; E78.5 Hyperlipidemia, unspecified; I10 Essential (primary) hypertension; D64.9 Anemia, unspecified | CPT/HCPCS: 36415; 83090 ==

== ENCOUNTER 2024-10-20 15:17 | Outpatient (AMB) | payer OTHER, SELFPAY ==
--- NOTE | 2024-10-20 15:38 | A.OFFVIS_ITS ---
Vital Signs 10/20/24 15:39 Weight 230 lb BP 100/60 Blood Pressure Location Rt brachial Position Sitting Pulse 83 Pulse Source Pulse Oximeter Pulse Oximetry (%) 96 Oxygen Delivery Method Room Air Intake Visit Reasons: 6mon follow-up Intake Note: Patient presents follow up dizziness. MRI/CTA in chart Force Dispatcher Required: No Allergies No Known Allergies Allergy (Verified 10/20/24 15:38) HPI Comments Details: A 74-year-old male presents for a follow-up visit for dizziness. Patient is accompanied by his daughter. Since the last visit, the patient had a [facility] consult. They did not recommend surgical intervention at this time. However, they encouraged him to continue to optimize cardiovascular and metabolic risk factors. The patient endorses that he has continued to abstain from smoking. Results of the patient's blood work in April were notable for anemia with WBC 4.2, H&H 9.7/32.9, MCH 24.7, platelet count 287, iron 15, TIBC 347, % sat 4%, ferritin 11 low, AST/ALT 42/60 elevated, high sensitivity CRP 3.6 elevated, vitamin B12 1675, elevated folate 6.3, homocystine 11, TSH 2.28. After review of these lab tests, the patient was referred to [facility]. Since he has undergone a transfusion and IV iron infusion. Since the patient states he is feeling overall better, he has more energy and endurance. He denies any interval episodes of dizziness. 04/11/2024, previous HPI: The patient is a 73-year-old male presenting with dizziness. Patient is accompanied by his dtr. The dizziness has resolved with smoking cessation. MRI reveals right frontal encephalomalacia, old small lacunar strokes and cerebral white matter changes. Follow-up CTA head/neck revealed right vertebral artery stenosis and left M2 blockage. The patient reports a past fall with a head injury. Pt denies h/o known stroke or TIA s/s. History of chronic left nasal bridge skin growth- does not impair vision. Previous hypertension treatment with amlodipine stopped due to edema, with no current alternative. He does not currently take aspirin. He is compliant with his statin, and his last look at levels were within normal limits. He is compliant with his diabetic medication regimen. Patient states his blood pressure is normally normal when he checks it at home, and only elevated when he's at the doctor's office. 12/16/2023, MR/MR head/brain wo/w con IMPRESSION: 8 mm lesion, left lateral nose bridge skin. Polypoid pattern paranasal sinus disease without seated complex/proteinaceous retention cysts. Encephalomalacia, associated old blood products and gliosis, bifrontal lobes. Small vessel occlusive disease. 12/31/2023, CT/CT angio head neck IMPRESSION: 1. CT head demonstrates no acute intracranial hemorrhage or edematous infarct. Chronic microangiopathy and global cerebral atrophy. 2. CTA head demonstrates near-complete focal stenosis of the left M2 mid to distal branch. No large vessel occlusion, saccular aneurysm, or dissection. 3. CTA neck demonstrates near complete focal stenosis of the right vertebral artery origin. No additional hemodynamically significant stenosis, dissection, or aneurysm. [facility] Surgical History History of ear surgery Family History Father Cancer Social History Alcohol intake: current Patient Tobacco Use Status: Former Tobacco user Tobacco use type: Cigar Physical Exam Vital Signs: Last Vital Signs Pulse 83 10/20/24 15:39 BP 100/60 10/20/24 15:39 Pulse Ox 96 10/20/24 15:39 Oxygen Delivery Method Room Air 10/20/24 15:39 Const General: cooperative and no acute distress Orientation/consciousness: patient oriented x3 HEENT Head: Yes normocephalic Resp Effort & Inspection: normal respiratory effort and able to speak in complete sentences Neuro General: patient oriented x3, moves all extremities and CN's II-XI intact bilaterally (w/ exception of bilateral [place]) Gait exam (Neuro): Normal gait present Psych Appearance: grossly normal Mental Status: mental status grossly normal Speech and movement: Normal speech and movement present Affect: normal affect Attitude: cooperative Assessment & Plan Assessment & Plan (1) Occlusion of right vertebral artery: Code(s): I65.01 - Occlusion and stenosis of right vertebral artery Category: Medical (2) Intracranial vascular stenosis: Code(s): I67.9 - Cerebrovascular disease, unspecified Category: Medical (3) Dizziness: Comment: Resolved Code(s): R42 - Dizziness and giddiness Category: Medical Plan Reviewed interval history, and notable improvements in patient's fatigue, energy level and dizziness. Follow-up with Hematology as scheduled Follow-up with [facility] as scheduled Continue not smoking to help manage dizziness and reduce stroke risk. Continue daily low-dose (baby) aspirin at bedtime to help reduce stroke risk. Continue current antihypertensive and diabetic medications as advised, including metformin and statin. Follow up in 6 months or sooner as necessary, especially if experiencing new symptoms. Coding Level of Care Code Est Pt Level 3 (81905) Diagnoses Occlusion of right vertebral artery I65.01 Intracranial vascular stenosis I67.9 Dizziness R42
[2024-10-20 15:39] VITALS: BP 100/60; PULSE 83; O2SAT 96
--- OUTSIDE RECORDS SUMMARY | 2024-10-20 18:24 | XMS_ITS | Clinical Summary ---
Author Organization 175 [facility] Address [address] [place] [address] Phone Care Team Providers Care Can Feeder Name Role Phone Bart Gray MD Primary Care Provider [phone] Allergies No known active allergies Medications cyanocobalamin (VITAMIN B-12) 1,000 mcg tablet TAKE 1 TABLET BY MOUTH EVERY DAY 90 tablet 3 5 Active ferrous sulfate 325 mg (65 mg elemental iron) tablet TAKE 1 TABLET BY MOUTH EVERY DAY 90 tablet 3 5 Active albuterol HFA (PROAIR HFA ; PROVENTIL HFA ; VENTOLIN HFA) 90 mcg/actuation inhaler Inhale 2 puffs by mouth. 4 Active aspirin 81 mg chewable tablet Chew 1 tablet (81 mg total). at bedtime. 5 Active blood sugar diagnostic (OneTouch Verio test strips) test strip TEST TWICE DAILY FOR 30 DAYS for 90 Active cholecalcifero l (VITAMIN D-3) 50 mcg (2,000 unit) tablet Take 1 tablet (2,000 Units total) by mouth. Active pioglitazone (Actos) 30 mg tablet Take 1 tablet (30 mg total) by mouth 1 (one) time each day. 30 each 5 026 Active omeprazole (PriLOSEC) [address] capsule Take 1 capsule (40 mg total) by mouth 1 (one) time each day. 180 capsule 1 5 Active metFORMIN (GLUCOPHAGE) 1,000 mg tablet TAKE 1 TABLET BY MOUTH TWICE A DAY WITH MEALS 180 tablet 1 5 Active lisinopriL (PRINIVIL,ZEST RIL) 20 mg tablet TAKE 1 TABLET BY MOUTH EVERY DAY 90 tablet 1 5 Active simvastatin (ZOCOR) 40 mg tablet TAKE 1 TABLET BY MOUTH EVERYDAY AT BEDTIME 90 tablet 1 5 Active lisinopriL (PRINIVIL,ZEST RIL) 20 mg tablet TAKE 1 TABLET BY MOUTH EVERY DAY 90 tablet 1 5 025 Discontinued simvastatin (ZOCOR) 40 mg tablet TAKE 1 TABLET BY MOUTH EVERYDAY AT BEDTIME 90 tablet 1 5 025 Discontinued Active Problems Problem Noted Date Diagnosed Date Acute on chronic blood loss anemia 08/11/2024 Primary hypertension 01/28/2024 Type 2 diabetes mellitus wit hout complication, without long-term current use of insulin ([facility] V24, [facility] V28) 01/28/2024 Mixed hyperlipidemia 01/28/2024 Vitamin D deficiency 01/28/2024 Gastroesophageal reflux disease 01/28/2024 Elevated liver enzymes 01/28/2024 Iron deficiency anemia 01/28/2024 Encounters Date Type Department Care Team Description 08/25/2024 1:22 PM EDT - 08/25/2024 11:59 PM EDT Hospital Encounter [facility] [address] [place] [phone] Ella Davies MD Iron deficiency anemia, unspecified iron deficiency anemia type (Primary Dx) Discharge Disposition: Home or Self Care 08/18/2024 8:20 AM EDT - 08/18/2024 11:59 PM EDT Hospital Encounter [facility] [address] [place] [phone] Ella Davies MD Iron deficiency anemia, unspecified iron deficiency anemia type (Primary Dx) Discharge Disposition: Home or Self Care 08/13/2024 8:28 AM EDT - 08/13/2024 11:59 PM EDT Hospital Encounter [facility] [address] [place] [phone] Ella Davies MD Acute on chronic blood loss anemia (Primary Dx) Discharge Disposition: Home or Self Care 08/11/2024 11:00 AM EDT Office Visit [facility] H[facility] [address] [place] [phone] Taya Osorio PA Acute on chronic blood loss anemia (Primary Dx); Iron deficiency anemia, unspecified iron deficiency anemia type; Nutritional deficiency; 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 No 06/22/2024 Food Access & Nutrition Answer Date Rec orded Do you have access to a vari ety of food including fruits and vegetables? Yes 06/22/2024 Health Literacy Answer Date Recorded How often do you need to hav e someone help you when you read instructions, pamphlets, or other written material from your doctor or pharmacy? Sometimes 06/22/2024 Caregiver: How often do you need to have someone help you when you read instructions, pamphlets, or other written material from your doctor or pharmacy? Not on file 06/22/2024 Financial Risk Answer Date Recorded How hard is it for you to pa y for the very basics like food, housing, medical care, and air conditioning / heating? Not very hard 06/22/2024 Transportation Answer Date Recorded Has the lack of transportati on kept you from meetings, work, or from getting things needed for daily living? No Has the lack of transportati on kept you from medical appointments or from getting medications? No 06/22/2024 Social Isolation Answer Date Recorded How often do you feel lonely or isolated from th ose around you? Never 06/22/2024 Food Risk Answer Date Recorded Within the past 12 months we worried whether our food would run out before we got money to buy more. Never true 06/22/2024 Within the past 12 months th e food we bought just didn't last and we didn't have money to get more. Never true 06/22/2024 Dependent Care Answer Date Recorded Do you need help finding or paying for care for your loved ones. For example, child and adolescent therapist or elderly care for an older adult? No 06/22/2024 Education Answer Date Recorded Do you think completing more education or training, like finishing a GED, going to college, or learning a trade, would be helpful for you? No 06/22/2024 Employment and Income Answer Date Recor ded During the last four weeks, have you been actively looking for work? No 06/22/2024 Living Situation Answer Date Recorded What is your living situation? 0 06/22/2024 Sex and Gender Information Value Date Recorded Sex Assigned at Male 08/13/2024 8:28 AM EDT Legal Sex Male 7:53 PM EST Gender Identity Male 08/13/2024 8:28 AM EDT Sexual Orientation Straight 08/13/2024 8: 28 AM EDT Obstetrics History Last Filed Vital Signs Vital Sign Reading Time Taken Comments Blood Pressure 132/79 08/25/2024 1:45 PM EDT Pulse 85 08/25/2024 1:45 PM EDT Temperature 36.5 C (97.7 F) 08/25/2024 1:45 PM EDT Respiratory Rate 18 08/25/2024 1:45 PM EDT Oxygen Saturation 99% 08/25/2024 1:45 PM EDT Inhaled Oxygen Concentration - - Weight 104 kg (230 lb 3.2 oz) 08/11/2024 11:13 A M EDT Height 177.8 cm (5' 10 ) 08/11/2024 11:13 AM EDT Body Mass Index 33.03 08/11/2024 11:13 AM EDT Plan of Treatment Upcoming Encounters Date Type Department Care Team (Late st Contact Info) Description 11/10/2024 9:45 AM EDT Office Visit [facility] H[facility] [address] [place] [phone] Taya Osorio PA [address] [place] [address] 12/02/2024 9:45 AM EDT Office Visit [facility] [address] [phone] Mikel Rosas MD [address] [place] [phone] 12/08/2024 9:00 AM EDT Office Visit Gastroenterology - [address] [phone] Lorna Carver, YASEMIN 175 [facility] [address] [place] [address] 06/29/2025 10:00 AM EDT Office Visit Internal Medicine - [place] 175 [facility] [address] [place] [phone] Bart Gray MD 175 [facility] [address] [place] [phone] Health Maintenance Due Date Last Done Comments Diabetes: Annual Retina Eye Exam 1960 DTaP,Tdap,and Td Vaccines (1 - Tdap) 1969 Pneumococcal Vaccine: 50+ Years (1 of 2 - PCV) 1969 Zoster Vaccines (1 of 2) 2000 COVID-19 Vaccine ( - 2024-2 6 season) 2024 07/25/2021, 02/01/2021, 04/16/2020 Influenza Vaccine (#1) 2024 Diabetes: Blood Sugar Contro l Test (HGBA1C) 12/25/2024 06/24/2024, 04/02/2023 RSV Immunization Adult Patients (1 - 1-dose 75+ series) 2025 Social Influencers of Health Screening 06/22/2025 06/22/2024 Diabetes: Annual Foot Exam 06/23/2025 06/23/2024 Falls Risk Assessment 06/23/2025 06/23/2024 Medicare Annual Wellness Visit 06/23/2025 06/23/2024 Diabetes: Annual Urine Albumin-Creatinine Ratio (uACR) 06/24/2025 06/24/2024, 04/02/2023 Diabetes: Annual GFR (Glomerular Filtration Rate) 08/11/2025 08/11/2024, 06/24/2024, 04/02/2023 Hypertension/CHF/CAD Annual BMP Blood Test 08/11/2025 08/11/2024, 06/24/2024, 04/02/2023 Cholesterol Screening (Lipid Panel) 06/24/2029 06/24/2024, 04/02/2023 Colorectal Cancer Screening: Colonoscopy 05/20/2033 05/21/2023 Hepatitis C Screening Completed 04/04/2023 Abdominal Aortic Aneurysm (AAA) Screen Completed 07/16/2023 Depression Screening Completed 06/23/2024 HIB Vaccines Aged Out No longer eligi [...] age to complete this topic Meningococcal B Vaccine Aged Out No l onger eligible based on patient's age to complete this topic RSV Immunization Patients Under 20 months Aged Out No longer eligible b ased on patient's age to complete this topic Varicella Vaccines Aged Out No longer eligible based on patient's age to complete this topic Procedures Procedure Name Priority Date/Time Associated Diagnosis Comments TRANSFUSE RED BLOOD CELLS Routine 08/13/2024 9:57 AM EDT Acute on chronic blood loss anemia PREPARE RBC Routine 08/13/2024 8:56 AM EDT Acute on chronic blood loss anemia TYPE AND SCREEN Routine 08/12/2024 8:05 AM EDT Iron deficiency anemia, unspecified iron deficiency anemia type Acute on chronic blood loss anemia CBC WITH AUTO DIFFERENTIAL Routine 08/11/2024 12:23 PM EDT Iron deficiency anemia, unspecified iron deficiency anemia type Nutritional deficiency RETICULOCYTE COUNT Routine 08/11/2024 12 :23 PM EDT Iron deficiency anemia, unspecified iron deficiency anemia type Nutritional deficiency COMPREHENSIVE METABOLIC PANEL Routine 08/11/2024 12:23 PM EDT Iron deficiency anemia, unspecified iron deficiency anemia type Nutritional deficiency LACTATE DEHYDROGENASE Routine 08/11/2024 12:23 PM EDT Iron deficiency anemia, unspecified iron deficiency anemia type Nutritional deficiency HAPTOGLOBIN Routine 08/11/2024 12:23 PM EDT Iron deficiency anemia, unspecified iron deficiency anemia type Nutritional deficiency VITAMIN B12 AND FOLATE Routine 12:23 PM EDT Iron deficiency anemia, unspecified iron deficiency anemia type Nutritional deficiency IRON AND TIBC Routine 08/11/2024 12:23 PM EDT Iron deficiency anemia, unspecified iron deficiency anemia type Nutritional deficiency FERRITIN Routine 08/11/2024 12:23 PM EDT Iron deficiency anemia, unspecified iron deficiency anemia type Nutritional deficiency ERYTHROPOIETIN Routine 08/11/2024 12:23 PM EDT Iron deficiency anemia, unspecified iron deficiency anemia type Nutritional deficiency CBC AND DIFFERENTIAL Routine 08/11/2024 12:23 PM EDT Iron deficiency anemia, unspecified iron deficiency anemia type Nutritional deficiency MICROALBUMIN CREATININE URINE RATIO Routine 06/24/2024 8:49 AM EDT Type 2 diabetes mellitus without complication, without long-term current use of insulin ([facility] V24, [facility] V28) HEMOGLOBIN A1C Routine 06/24/2024 8:43 AM EDT Medicare annual wellness visit, subsequent Type 2 diabetes mellitus without complication, without long-term current use of insulin (CMS/HCC V24, [facility] V28) LIPID PANEL WITH REFLEX TO DIRECT LDL Routine 06/24/2024 8:43 AM EDT Medicare annual wellness visit, subsequent Mixed hyperlipidemia HM ABDOMINAL AORTIC ANEURYSM SCRREN Routine 07/16/2023 COLONOSCOPY Routine 05/21/2023 HEPATITIS C SCREENING Routine 04/04/2023 from Last 3 Months or Most Recently Relevant to Health Maintenance Results * Transfuse RBC (08/13/2024 12:19 PM EDT) us Taya COLLIER BLOOD TRANSFUSION ORDERABLES Final Result * Prepare RBC: 1 Units (08/13/2024 8:56 AM EDT) Product Code [id number] 08/13/2024 10:00 AM EDT [facility] Unit Number [id number] 08/14/19 10:00 AM EDT [facility] Crossmatch Compatible 08/13/2024 9:29 AM EDT [facility] Dispense Status Transfused 08/13/2024 10:00 AM EDT [facility] Unit ABO Rh APOS 08/13/2024 10:00 AM EDT [facility] Unit Expiration Date Time [id number] 08/13/2024 10:00 AM EDT [facility] Unit Blood Type 6200 08/13/2024 10:00 AM EDT [facility] Blood Venous blood specimen / Unknown 08/13/2024 8:56 AM EDT 08/12/2024 11:11 AM EDT us Taya COLLIER BLOOD BANK PRODUCT ORDERABLES Final Result [facility] [address] [place] [address], * Type and screen (08/12/2024 8:05 AM EDT) ABO Group A 08/12/2024 12:08 PM EDT [facility] Rh Type Positive 08/12/2024 12:08 PM EDT [facility] Antibody Screen Negative 08/12/2024 12:08 PM EDT [facility] Blood Venous blood specimen / Unknown Venipuncture / Unknown 08/12/2024 8:05 AM EDT 08/12/2024 11:11 AM EDT Taya COLLIER LAB BLOOD BANK TEST ORDERABLE S Final Result Performing Organization Address [facility]/ZIP Co de Phone Number [facility] [address] [place] [address], [place] [phone] * (ABNORMAL) Vitamin B12 and folate (08/11/2024 12:23 PM EDT) Pathologist [facility] [place] Vitamin B-12 1,268(H) 250 - 900 pcg/mL LAB CHEMISTRY METHOD 08/11/2024 3:28 PM EDT [facility] Folate 8.7 2.8 - 17.0 ng/ml LAB CHEMISTRY METHOD 08/11/2024 3:28 PM EDT [facility] Blood Venous blood specimen / Unknown Venipuncture / Unknown 08/11/2024 12:23 PM EDT 08/11/2024 1:37 PM EDT Taya COLLIER LAB BLOOD ORDERABLES Final Re sult [facility] [address] [place] [address], [place] [phone] * (ABNORMAL) CBC auto differential (08/11/2024 12:23 PM EDT) Pathologist [facility] [place] WBC 5.0 4.8 - 10.8 K/mcL LAB HEMETOLOGY METHOD 08/11/2024 2:00 PM EDT [facility] RBC 3.70(L) 4.50 - 5.50 M/mcL LAB HEMETOLOGY METHOD 08/11/2024 2:00 PM [facility] Hemoglobin 7.6(L) 13.5 - 17.5 g/dL LAB HEMETOLOGY METHOD 08/11/2024 2:00 PM [facility] Hematocrit 29.0(L) 42.0 - 54.0 % LAB HEMETOLOGY METHOD 08/11/2024 2:00 PM [facility] MCV 79.2 79.0 - 98.0 FL LAB HEMETOLOGY METHOD 08/11/2024 2:00 PM [facility] MCH 20.8(L) 27.0 - 32.0 pcg LAB HEMETOLOGY METHOD 08/11/2024 2:00 PM [facility] MCHC 26.2(L) 32.0 - 37.0 g/dL LAB HEMETOLOGY METHOD 08/11/2024 2:00 PM [facility] RDW 19.9(H) 11.0 - 15.0 % LAB HEMETOLOGY METHOD 08/11/2024 2:00 PM [facility] Platelets 319 130 - 400 K/mcL LAB HEMETOLOGY METHOD 08/11/2024 2:00 PM [facility] MPV 9.6 7.0 - 11.0 FL LAB HEMETOLOGY METHOD 08/11/2024 2:00 PM [facility] NRBC 0.0 <1.0 % LAB HEMETOLOGY METHOD 08/11/2024 2:00 PM [facility] NRBC Absolute 0.00 <0.10 K/mcL LAB HEMETOLOGY METHOD 08/11/2024 2:00 PM [facility] Neutrophils Relative 60.2 % LAB HEMETOLOGY METHOD 08/11/2024 2:00 PM [facility] Lymphocytes Relative 22.3 % LAB HEMETOLOGY METHOD 08/11/2024 2:00 PM EDT [facility] Monocytes Relative 12.5 % LAB HEMETOLOGY METHOD 08/11/2024 2:00 PM T [facility] Eosinophils Relative 3.8 % LAB HEMETOLOGY METHOD 08/11/2024 2:00 PM EDT [facility] Basophils Relative 0.8 % LAB HEMETOLOGY METHOD 08/11/2024 2:00 PM EDT [facility] Immature Granulocytes Relative 0.4 % LAB HEMETOLOGY METHOD 08/11/2024 2:00 PM EDT [facility] Neutrophils Absolute 2.99 1.50 - 7.00 K/mcL LAB HEMETOLOGY METHOD 08/11/2024 2:00 PM [facility] Lymphocytes Absolute 1.11 1.00 - 5.00 K/mcL LAB HEMETOLOGY [facility] Monocytes Absolute 0.62 0.20 - 1.00 K/mcL LAB HEMETOLOGY METHOD [facility] Eosinophils Absolute 0.19 0.00 - 0.50 K/mcL LAB HEMETOLOGY METHOD 08/11/2024 2:00 PM [facility] Basophils Absolute 0.04 0.00 - 0.20 K/mcL LAB HEMETOLOGY METHOD 08/11/2024 2:00 PM EDT [facility] Immature Granulocytes Absolute 0.02 0.00 - 0.03 K/mcL LAB HEMETOLOGY METHOD 08/11/2024 2:00 PM [facility] Blood Venous blood specimen / Unknown Venipuncture / Unknown 08/11/2024 12:23 PM EDT 08/11/2024 1:38 PM EDT Taya COLLIER LAB BLOOD ORDERABLES Final Re sult [facility] [address] [place] [address], [place] [phone] * (ABNORMAL) Erythropoietin (08/11/2024 12:23 PM EDT) Erythropoietin 413.3(H) 2.6 - 18.5 mIU/mL 08/14/2024 4:07 PM EDT [facility] Comment: Test performed at [facility], [address], [place] [address] Bernadine Ramos MD, PhD - Aviation Technician Blood Venous blood specimen / Unknown Venipuncture / Unknown 08/11/2024 12:23 PM EDT 08/11/2024 1:37 PM EDT Taya COLLIER LAB BLOOD ORDERABLES Final Re sult [facility] [address] [place] [address] * (ABNORMAL) Iron and TIBC (08/11/2024 12:23 PM EDT) Iron 16(L) 50 - 160 mcg/dL LAB CHEMISTRY METHOD 08/11/2024 3:28 PM EDT [facility] TIBC 492(H) 250 - 450 mcg/dL LAB CHEMISTRY METHOD 08/11/2024 3:28 PM EDT [facility] Iron Saturation 3(L) 20 - 50 % LAB CHEMISTRY METHOD 08/11/2024 3:28 PM EDT [facility] Blood Venous blood specimen / Unknown Venipuncture / Unknown 08/11/2024 12:23 PM EDT 08/11/2024 1:37 PM EDT Taya COLLIER LAB BLOOD ORDERABLES Final Re sult [facility] [address] [place] [address], [place] [phone] * (ABNORMAL) Reticulocyte count (08/11/2024 12:23 PM EDT) Retic Ct Abs 0.080 0.030 - 0.090 M/mcL LAB HEMETOLOGY METHOD 08/11/2024 1:53 PM EDT [facility] Retic Ct Pct 2.3(H) 0.7 - 1.7 % LAB HEMETOLOGY METHOD 08/11/2024 1:53 PM EDT [facility] Immature Retic Fract 28.4(H) 2.3 - 15.9 % LAB HEMETOLOGY METHOD 08/11/2024 1:53 PM EDT [facility] Reticulocyte Hemoglobin 17.2(L) >29.0 pcg LAB HEMETOLOGY METHOD 08/11/2024 1:53 PM EDT [facility] Blood Venous blood specimen / Unknown Venipuncture / Unknown 08/11/2024 12:23 PM EDT 08/11/2024 1:38 PM EDT Taya COLLIER LAB BLOOD ORDERABLES Final Re sult [facility] [address] [place] [address], [place] [phone] * Lactate dehydrogenase (08/11/2024 12:23 PM EDT) LDH 126 120 - 246 unit/L LAB CHEMISTRY METHOD 08/11/2024 3:03 PM EDT [facility] Blood Venous blood specimen / Unknown Venipuncture / Unknown 08/11/2024 12:23 PM EDT 08/11/2024 1:37 PM EDT Taya COLLIER LAB BLOOD ORDERABLES Final Re sult Performing Organization Address [facility]/ZIP Co de Phone Number [facility] [address] [place] [address], [place] [phone] * Haptoglobin (08/11/2024 12:23 PM EDT) [facility] Haptoglobin 158 16 - 200 mg/dL LAB CHEMISTRY METHOD 08/11/2024 3:28 PM EDT [facility] Blood Venous blood specimen / Unknown Venipuncture / Unknown 08/11/2024 12:23 PM EDT 08/11/2024 1:37 PM EDT Taya COLLIER LAB BLOOD ORDERABLES Final Re sult Performing Organization Address [facility] Co de Phone Number [facility] [address] [place] [address], [place] [phone] * (ABNORMAL) Ferritin (08/11/2024 12:23 PM EDT) [facility] Ferritin 6(L) 26 - 388 ng/mL LAB CHEMISTRY METHOD 08/11/2024 3:38 PM EDT [facility] Blood Venous blood specimen / Unknown Venipuncture / Unknown 08/11/2024 12:23 PM EDT 08/11/2024 1:37 PM EDT Taya COLLIER LAB BLOOD ORDERABLES Final Re sult Performing Organization Address [facility]/ZIP Co de Phone Number [facility] [address] [place] [address], [place] [phone] * (ABNORMAL) Comprehensive metabolic panel (08/11/2024 12:23 PM EDT) [facility] Sodium 136 133 - 145 mmol/L LAB CHEMISTRY METHOD 08/11/2024 3:28 PM EDT [facility] Potassium 4.4 3.5 - 5.5 mmol/L LAB CHEMISTRY METHOD 08/11/2024 3:28 PM [facility] Chloride 104 96 - 110 mmol/L LAB CHEMISTRY METHOD 08/11/2024 3:28 PM [facility] CO2 23 21 - 32 mmol/L LAB CHEMISTRY METHOD 08/11/2024 3:28 PM [facility] Anion Gap 9 3 - 11 LAB CHEMISTRY METHOD 08/11/2024 3:28 PM [facility] Glucose 132(H) 70 - 100 mg/dL LAB CHEMISTRY METHOD 08/11/2024 3:28 PM [facility] BUN 17 5 - 25 mg/dL LAB CHEMISTRY METHOD 08/11/2024 3:28 PM [facility] Creatinine 1.16 0.70 - 1.30 mg/dL LAB CHEMISTRY METHOD 08/11/2024 3:28 PM [facility] eGFR 66 >=60 mL/min/1. 73m2 LAB CHEMISTRY METHOD 08/11/2024 3:28 PM [facility] Comment:Calculation based on the Chronic Kidney Disease Epidemiology Collaboration (CKD-EPI) equation refit without adjustment for race. BUN/Creatinine Ratio 14.7 LAB CHEMISTRY METHOD 08/11/2024 3:28 PM [facility] Calcium 10.2 8.5 - 10.5 mg/dL LAB CHEMISTRY METHOD 08/11/2024 3:28 PM [facility] AST (SGOT) 16 10 - 42 unit/L LAB CHEMISTRY METHOD 08/11/2024 3:28 PM [facility] ALT (SGPT) 35 10 - 60 unit/L LAB CHEMISTRY METHOD 08/11/2024 3:28 PM [facility] Alkaline Phosphatase 52 42 - 121 unit/L LAB CHEMISTRY METHOD 08/11/2024 3:28 PM [facility] Total Protein 7.1 6.0 - 8.0 g/dL LAB CHEMISTRY METHOD 08/11/2024 3:28 PM EDT [facility] Albumin 4.2 3.2 - 5.0 g/dL LAB CHEMISTRY METHOD 08/11/2024 3:28 PM EDT [facility] Total Bilirubin 0.2 0.0 - 1.4 mg/dL LAB CHEMISTRY METHOD 08/11/2024 3:28 PM EDT [facility] Blood Venous blood specimen / Unknown Venipuncture / Unknown 08/11/2024 12:23 PM EDT 08/11/2024 1:37 PM EDT us Taya COLLIER LAB BLOOD ORDERABLES Final Re sult Performing Organization Address City[facility]/ZIP Co de Phone Number [facility] [address] [place] [address], [place] [phone] * (ABNORMAL) Microalbumin creatinine urine ratio (06/24/2024 8:49 AM EDT) Creatinine, Urine 203.0 mg/dL LAB CHEMISTRY METHOD 06/24/2024 10:03 AM EDT [facility] Microalb, Ur 30.6(H) 0.0 - 29.0 mg/L LAB CHEMISTRY METHOD 06/24/2024 10:03 AM EDT [facility] Microalb/Crea t Ratio 15 <30 mg/g creat LAB CHEMISTRY METHOD 06/24/2024 10:03 AM EDT [facility] Urine Urine specimen from urethra / Unknown Non-blood Collection / Unknown 06/24/2024 8:49 AM EDT 06/24/2024 9:24 AM EDT Bart Gray MD LAB URINE ORDERABLES Final Resul t Performing Organization Address City/[facility]/ZIP Co de Phone Number [facility] [address] [place] [address], [place] [phone] * (ABNORMAL) Lipid panel with reflex to direct LDL (06/24/2024 8:43 AM EDT) Cholesterol 108 0 - 200 mg/dL LAB CHEMISTRY METHOD 06/24/2024 10:17 AM T [facility] Triglycerides 119 0 - 150 mg/dL LAB CHEMISTRY METHOD 06/24/2024 10:17 AM EDT [facility] HDL 34(L) >=40 mg/dL LAB CHEMISTRY METHOD 06/24/2024 10:17 AM T [facility] LDL Calculated 50 0 - 100 mg/dL LAB CHEMISTRY METHOD 06/24/2024 10:17 AM T [facility] VLDL Cholesterol Sánchez 23.8 mg/dL LAB CHEMISTRY METHOD 06/24/2024 10:17 AM [facility] Non HDL Chol. (LDL+VLDL) 74 <145 mg/dL LAB CHEMISTRY METHOD 06/24/2024 10:17 AM [facility] Chol/HDL Ratio 3.2 0.0 - 4.4 LAB CHEMISTRY METHOD 06/24/2024 10:17 AM [facility] Blood Venous blood specimen / Unknown Venipuncture / Unknown 06/24/2024 8:43 AM EDT 06/24/2024 9:23 AM EDT us Bart Gray MD LAB BLOOD ORDERABLES Final Resul t [facility] [address] [place] [address], [place] [phone] * (ABNORMAL) Hemoglobin A1c (06/24/2024 8:43 AM EDT) Hemoglobin A1C 8.0(H) <6.5 % LAB CHEMISTRY METHOD 06/24/2024 11:40 AM EDT [facility] Mean Bld Glu Estim. 183 mg/dL LAB CHEMISTRY METHOD 06/24/2024 11:40 AM EDT [facility] Blood Venous blood specimen / Unknown Venipuncture / Unknown 06/24/2024 8:43 AM EDT 06/24/2024 9:24 AM EDT Bart Gray MD LAB BLOOD ORDERABLES Final Resul t [facility] [address] [place] [address], [place] [phone] * Abdominal Aortic Aneurysm Screen (07/16/2023) Abdominal Aortic Aneurysm (AAA) Screening abstracted Anatomical Region Laterality Modality Other Historical Provider HEALTH MAINTENANCE Final Result * Colonoscopy (05/21/2023) Colonoscopy no interpretation , abstracted Anatomical Region Laterality Modality Other Historical Provider HEALTH MAINTENANCE Final Result * Hepatitis C Screening (04/04/2023) Hepatitis C Screening abstracted Historical Provider HEALTH MAINTENANCE Final Result from Last 3 Months or Most Recently Relevant to Health Maintenance Insurance [employer] [place] [employer] Advance Directives * Full Code - Confirmed (Latest Code Status on File) Date Activated Date Inactivated Comments 06/23/2024 3:30 PM This code stat us was ascertained in the following way: Code status discussion: discussion with patient To update the patient's code status, place a code status order. Do not modify or discontinue any currently active code status orders. Care Teams Can Feeder Relationship Specialty Start Date End Date Bart Gray MD [address] [place] [address] [id number] PCP - General Internal Medicine 01/02/24
== END 2024-10-20 16:04 | disposition home or self-care (01) ==
LOC: HO.HSMS 15:18
PROVIDERS: PCP Student in an Organized Health Care Education/Training Program; Visit Provider Nurse Practitioner Family
DX: I65.01 Occlusion and stenosis of right vertebral artery (principal); I67.9 Cerebrovascular disease, unspecified; R42 Dizziness and giddiness
CPT/HCPCS: 99213

== ENCOUNTER → 2024-10-20 15:17 | Outpatient (BNVA) | payer OTHER, SELFPAY | PROVIDERS: PCP Student in an Organized Health Care Education/Training Program; Visit Provider Nurse Practitioner Family | DX: R42 Dizziness and giddiness (principal); I65.01 Occlusion and stenosis of right vertebral artery; I67.9 Cerebrovascular disease, unspecified; Z87.891 Personal history of nicotine dependence; Z79.82 Long term (current) use of aspirin; I10 Essential (primary) hypertension; Z13.89 Encounter for screening for other disorder ==